=== PATIENT | female | born 1975 | race African-American/Black ===

== ENCOUNTER 2018-01-02 03:09 | Observation (INO) | payer BC, SELFPAY ==
[2018-01-02] MEDS ORDERED: ONDANSETRON 4 MG/2 ML VIAL ONE (03:30)
[2018-01-02] MEDS ORDERED: MORPHINE 4 MG/ML SYR ONE ×2 (03:30→08:10)
[2018-01-02 03:39] LABS: Absolute Lymphocytes (CBC) 2.3 K/uL (0.7-4.9); Absolute Monocytes 0.4 K/uL (0.1-1.3); Basophils % 0.9 % (0-1.3); Hematocrit 33.7 % (36.0-45.0); Lymphocytes % 32.7 % (15.3-44.8); MCH 28.8 pg (27.0-35.0); MCV 87.6 fL (80-100); MPV 9.2 fL (7.6-11.3); Monocytes % 6.2 % (3.3-12.3); RBC Red Blood Cell Count 3.84 M/uL (3.86-4.86)
[2018-01-02] MEDS ORDERED: NA CHLORIDE 0.9% 1,000 ML ONE (03:46)
[2018-01-02 03:55] LABS: Bicarbonate 26 mEq/L (21-31); Glucose Level 104 mg/dL (65-120); Lipase 17 U/L (22-51); Potassium 3.9 mEq/L (3.6-5.0); Sodium Level 136 mEq/L (135-145)
[2018-01-02 04:01] LABS: ALT/SGPT 15 IU/L (10-60); AST/SGOT 16 IU/L (10-42); Albumin 3.7 g/dL (3.2-5.5); Alkaline Phosphatase 73 IU/L (42-121); Amylase Level 76 U/L (28-100); BUN Blood Urea Nitrogen 17 mg/dL (6-20); Bilirubin Direct < 0.1 mg/dL (0-0.2); Bilirubin Total 0.2 mg/dL (0.3-1.2); Protein, Total 7.6 g/dL (6.0-8.3)
[2018-01-02 04:03] LABS: Urine Bacteria 20-50 /HPF (<20); Urine Culture Reflex Order NOT NEEDED; Urine RBC NONE SEEN /HPF (NONE SEEN)
[2018-01-02 04:09] LABS: Urine Blood NEGATIVE (NEG); Urine Glucose NEGATIVE (NEG); Urine Protein NEGATIVE (NEG)
[2018-01-02] MEDS ORDERED: MEPERIDINE HCL 50 MG/ML AMP ONE ×2 (04:44→14:14)
[2018-01-02] MEDS ORDERED: MORPHINE 4 MG/ML SYR IV PRN (06:35)
[2018-01-02] MEDS ORDERED: ACETAMINOPHEN 500 MG TAB PO PRN (06:35)
[2018-01-02] MEDS ORDERED: PROMETHAZINE 25 MG/ML VIAL ONE ×2 (08:09→14:40)
--- NOTE | 2018-01-02 09:13 | ER ---
Nurse's Notes [facility] Name: Anjana Stevenson Age: 42 yrs Sex: Female : 1975 Arrival Date: 01/02/2018 Time: 03:13 Bed 6 Private MD: Vinod Nolan Diagnosis: Recurrent abdominal pain. Cholelithiasis Presentation: 01/02 03:23 Presenting complaint: Patient states: she started having abdominal pain yesterday bb denies nausea, vomiting, diarrhea, states pain is constant she has been unable to sleep tonight, had episode of similar symptoms 5 months ago and was told she may have Crohn's and gallstones and should follow-up with GI. Transition of care: patient was not received from another setting of care. Onset of symptoms was January 01, 2018. Initial Sepsis Screen: Does the patient meet any 2 criteria? No. Patient's initial sepsis screen is negative. Does the patient have a suspected source of infection? No. Patient's initial sepsis screen is negative. Care prior to arrival: None. 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 - Social history:: Smoking status: Patient/guardian denies using tobacco, Patient/guardian denies using alcohol, street drugs. Screenin:43 Abuse screen: Denies threats or abuse. Denies injuries from another. Nutritional tl1 screening: No deficits noted. Tuberculosis screening: No symptoms or risk factors identified. Fall Risk IV access (20 points). Assessment: 03:42 General: Appears in no apparent distress. uncomfortable, Behavior is calm, cooperative, tl1 appropriate for age. Pain: Complains of pain in umbilical area Pain currently is 9 out of 10 on a pain scale. Quality of pain is described as crampy. Neuro: Level of Consciousness is awake, alert, obeys commands, Oriented to person, place, time, situation. Cardiovascular: Denies chest pain. Respiratory: Airway is patent Trachea midline Respiratory effort is even, unlabored, Breath sounds are clear bilaterally. GI: Abdomen is non-distended, Bowel sounds present X 4 quads. Abdomen is tender to palpation in umbilical area Reports lower abdominal pain, cramping. : No signs and/or symptoms were reported regarding the genitourinary system. EENT: No signs and/or symptoms were reported regarding the EENT system. Derm: No signs and/or symptoms reported regarding the dermatologic system. 07:18 Reassessment: US at bedside at this time. tw2 07:18 Reassessment: Patient appears in no apparent distress at this time. Patient and/or tw2 family updated on plan of care and expected duration. Pain level reassessed. Patient is alert, oriented x 3, equal unlabored respirations, skin warm/dry/pink. 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 tw2 Vital Signs: 03:26 BP 130 / 96; Pulse 94; Resp 18 S; Temp 98.4(O); Pulse Ox 99% on R/A; Weight 94.35 kg bb (R); Height 5 ft. 6 in. (167.64 cm) (R); Pain 10/10; 04:18 BP 123 / 67; Pulse 81; Resp 17; Pulse Ox 99% on R/A; tl1 05:50 BP 107 / 64; Pulse 72; Resp 18; Pulse Ox 99% on R/A; Pain 0/10; tl2 06:46 BP 113 / 72; Pulse 66; Resp 17; Pulse Ox 100% ; Pain 0/10; tl1 07:00 BP 108 / 61; Pulse 66; Resp 17; Pulse Ox 99% on R/A; tw2 08:03 BP 120 / 70; Pulse 64; Resp 17; Pulse Ox 99% ; tw2 03:26 Body Mass Index 33.57 (94.35 kg, 167.64 cm) bb ED Course: 03:13 Patient arrived in ED. es 03:13 Vinod Nolan MD is Private Physician. es 03:16 Stevo Simmons MD is Attending Physician. pkl 03:25 Triage completed. bb 03:26 Arm band placed on Patient placed in an exam room, on a stretcher, on pulse oximetry. bb 03:27 Anjana Seals, CHERELLE is Primary Nurse. tl1 03:34 No provider procedures requiring assistance completed. Inserted saline lock: 20 gauge tl1 in left antecubital area, using aseptic technique. Blood collected. 06:28 Barney Leigh MD is Hospitalizing Provider. pkl 07:10 Primary Nurse role handed off by Anjana Seals RN mw2 07:18 Chapis Zhou RN is Primary Nurse. tw2 07:18 Bed in low position. tw2 07:30 Ultrasound completed. Patient tolerated well. sg3 08:31 Patient admitted, IV remains in place. tw2 Administered Medications: 03:35 Drug: morphine 4 mg Route: IVP; Infused Over: 2 mins; Site: left antecubital; tl1 06:47 Follow up: Response: No adverse reaction; Marked relief of symptoms; Pain is decreased tl1 03:35 Drug: Zofran 4 mg Route: IVP; Infused Over: 2 mins; Site: left antecubital; tl1 06:48 Follow up: Response: No adverse reaction tl1 03:44 Drug: NS 0.9% 500 ml Route: IV; Rate: bolus; Site: left antecubital; tl1 04:22 Follow up: IV Status: Completed infusion tl1 04:22 Drug: NS 0.9% 1000 ml Route: IV; Rate: 100 ml/hr; Site: left antecubital; tl1 08:44 Follow up: IV Status: Infusion continued upon admission tw2 04:46 Drug: Demerol 50 mg Route: IVP; Infused Over: 2 mins; Site: left antecubital; tl1 06:47 Follow up: Response: No adverse reaction; Marked relief of symptoms; Pain is decreased tl1 08:10 Drug: Phenergan 12.5 mg Route: IVP; Site: left antecubital; tw2 08:44 Follow up: Response: No adverse reaction tw2 08:13 Drug: morphine 4 mg Route: IVP; Site: left antecubital; tw2 08:43 Follow up: Response: No adverse reaction tw2 Outcome: 06:30 Decision to Hospitalize by Provider. pkl 08:31 Admitted to Med/surg accompanied by tech, via wheelchair, room 217, with chart, Report tw2 called to CHERELLE Asher 08:31 Condition: stable 08:31 Instructed on the need for admit. 09:12 Patient left the ED. tw2 Signatures: Stevo Simmons MD MD pkl Carrol Blanco Brenda, RN RN bb Anjana Seals RN RN tl1 Chapis Zhou RN RN tw2 Susan Yang RN RN tl2 Starla Myles Pura Sun 2
--- NOTE | 2018-01-02 09:13 | EDPHYS ---
Physician Documentation [facility] Name: Anjana Stevenson Age: 42 yrs Sex: Female : 1975 Arrival Date: 01/02/2018 Time: 03:13 Bed 6 Private MD: Vinod Nolan ED Physician Stevo Simmons HPI: 01/02 03:41 This 42 yrs old Black Female presents to ER via Ambulatory with complaints of Abdominal pkl Pain. 03:41 The patient presents with abdominal pain in the upper abdomen. Onset: The pkl symptoms/episode began/occurred yesterday. The symptoms do not radiate. The patient has experienced a previous episode, approximately 5 months ago. 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 - Social history:: Smoking status: Patient/guardian denies using tobacco, Patient/guardian denies using alcohol, street drugs. ROS: 03:41 Eyes: Negative for injury, pain, redness, and discharge, ENT: Negative for injury, pkl pain, and discharge, Neck: Negative for injury, pain, and swelling, Cardiovascular: Negative for chest pain, palpitations, and edema. 03:41 Respiratory: Negative for cough, shortness of breath. 03:41 Abdomen/GI: Positive for abdominal pain, of the right upper quadrant and left upper quadrant. 03:41 Back: Negative for acute changes. 03:41 : Negative for urinary symptoms. 03:41 MS/extremity: Negative for acute changes. 03:41 Skin: Negative for rash. 03:41 Neuro: Negative for altered mental status. Exam: 03:41 Head/Face: Normocephalic, atraumatic. Eyes: Pupils equal round and reactive to light, pkl extra-ocular motions intact. Lids and lashes normal. Conjunctiva and sclera are non-icteric and not injected. Cornea within normal limits. Periorbital areas with no swelling, redness, or edema. ENT: Nares patent. No nasal discharge, no septal abnormalities noted. Tympanic membranes are normal and external auditory canals are clear. Oropharynx with no redness, swelling, or masses, exudates, or evidence of obstruction, uvula midline. Mucous membranes moist. Neck: Trachea midline, no thyromegaly or masses palpated, and no cervical lymphadenopathy. Supple, full range of motion without nuchal rigidity, or vertebral point tenderness. No Meningismus. Chest/axilla: Normal chest wall appearance and motion. Nontender with no deformity. No lesions are appreciated. Cardiovascular: Regular rate and rhythm with a normal S1 and S2. No gallops, murmurs, or rubs. Normal PMI, no JVD. No pulse deficits. Respiratory: Lungs have equal breath sounds bilaterally, clear to auscultation and percussion. No rales, rhonchi or wheezes noted. No increased work of breathing, no retractions or nasal flaring. 03:41 Abdomen/GI: Bowel sounds: normal, Palpation: soft, mild abdominal tenderness, in the right upper quadrant and left upper quadrant. 03:41 Back: Exam negative for acute changes. 03:41 : Exam negative for acute changes. 03:41 Musculoskeletal/extremity: Exam is negative for acute changes. 03:41 Skin: Exam negative for rash. 03:41 Neuro: Orientation: is normal, Mentation: is normal, Cranial nerves: grossly normal, Motor: is normal. Vital Signs: 03:26 BP 130 / 96; Pulse 94; Resp 18 S; Temp 98.4(O); Pulse Ox 99% on R/A; Weight 94.35 kg bb (R); Height 5 ft. 6 in. (167.64 cm) (R); Pain 10/10; 04:18 BP 123 / 67; Pulse 81; Resp 17; Pulse Ox 99% on R/A; tl1 05:50 BP 107 / 64; Pulse 72; Resp 18; Pulse Ox 99% on R/A; Pain 0/10; tl2 06:46 BP 113 / 72; Pulse 66; Resp 17; Pulse Ox 100% ; Pain 0/10; tl1 07:00 BP 108 / 61; Pulse 66; Resp 17; Pulse Ox 99% on R/A; tw2 08:03 BP 120 / 70; Pulse 64; Resp 17; Pulse Ox 99% ; tw2 03:26 Body Mass Index 33.57 (94.35 kg, 167.64 cm) MDM: 03:16 Patient medically screened. pkl 06:28 Data reviewed: vital signs, nurses notes, lab test result(s), radiologic studies. pkl 01/02 03:28 Order name: Amylase, Serum; Complete Time: 04:09 tl1 01/02 03:28 Order name: Basic Metabolic Panel; Complete Time: 04:09 tl1 01/02 03:28 Order name: CBC with Diff; Complete Time: 04:09 tl1 01/02 03:28 Order name: Hepatic Function; Complete Time: 04:09 tl1 01/02 03:28 Order name: Lipase; Complete Time: 04:09 tl1 01/02 03:28 Order name: Urine Microscopic Only; Complete Time: 04:09 tl1 01/02 03:48 Order name: Urine Dipstick--Ancillary (enter results); Complete Time: 04:11 mw2 01/02 03:48 Order name: Urine --Ancillary (enter results) 2 01/02 03:49 Order name: Urine --Ancillary; Complete Time: 04:11 EDMS 01/02 06:31 Order name: XRAY CXR (1 view) pkl 01/02 06:31 Order name: US Abdomen Limited pkl 01/02 03:28 Order name: IV Saline Lock; Complete Time: 03:32 tl1 01/02 03:28 Order name: Labs collected and sent; Complete Time: 03:32 tl1 01/02 03:28 Order name: Urine Dipstick-Ancillary (obtain specimen); Complete Time: 03:32 tl1 01/02 06:31 Order name: EKG; Complete Time: 06:32 pkl Administered Medications: 03:35 Drug: morphine 4 mg Route: IVP; Infused Over: 2 mins; Site: left antecubital; tl1 06:47 Follow up: Response: No adverse reaction; Marked relief of symptoms; Pain is decreased tl1 03:35 Drug: Zofran 4 mg Route: IVP; Infused Over: 2 mins; Site: left antecubital; tl1 06:48 Follow up: Response: No adverse reaction tl1 03:44 Drug: NS 0.9% 500 ml Route: IV; Rate: bolus; Site: left antecubital; tl1 04:22 Follow up: IV Status: Completed infusion tl1 04:22 Drug: NS 0.9% 1000 ml Route: IV; Rate: 100 ml/hr; Site: left antecubital; tl1 08:44 Follow up: IV Status: Infusion continued upon admission tw2 04:46 Drug: Demerol 50 mg Route: IVP; Infused Over: 2 mins; Site: left antecubital; tl1 06:47 Follow up: Response: No adverse reaction; Marked relief of symptoms; Pain is decreased tl1 08:10 Drug: Phenergan 12.5 mg Route: IVP; Site: left antecubital; tw2 08:44 Follow up: Response: No adverse reaction tw2 08:13 Drug: morphine 4 mg Route: IVP; Site: left antecubital; tw2 08:43 Follow up: Response: No adverse reaction tw2 Disposition: 01/02/18 06:30 Hospitalization ordered by Barney Leigh for Observation. Preliminary diagnosis is Recurrent abdominal pain. Cholelithiasis. - Bed requested for Telemetry/MedSurg (observation). - Status is Observation. tw2 - Condition is Stable. - Problem is new. - Symptoms have improved. UTI on Admission? No Signatures: Dispatcher [employer] EDME Stevo Simmons MD MD pkl Zulma Chew RN RN bb Anjana Seals RN RN tl1 Karen Garcia Tara, RN RN tw2 Corrections: (The following items were deleted from the chart) 03:38 03:28 Creatinine for Radiology+C.LAB.BRZ ordered. [facility] EDME 08:29 06:30 Hospitalization Ordered by Barney Leigh MD for Observation. Preliminary ag diagnosis is Recurrent abdominal pain. Cholelithiasis. Bed requested for Telemetry/MedSurg (observation). Status is Observation. Condition is Stable. Problem is new. Symptoms have improved. UTI on Admission? No. pkl 09:12 08:29 01/02/2018 06:30 Hospitalization Ordered by Barney Leigh MD for Observation. tw2 Preliminary diagnosis is Recurrent abdominal pain. Cholelithiasis. Bed requested for Telemetry/MedSurg (observation). Status is Observation. Condition is Stable. Problem is new. Symptoms have improved. UTI on Admission? No. ag
[2018-01-02 09:44] VITALS: BMI 33.5
[2018-01-02] MEDS: D5 0.45 NS 1,000 ML IV SCH ×3 (10:09→22:19)
[2018-01-02] MEDS ORDERED: GLYCOPYRROLATE 0.2 MG/ML SYR ONE ×2 (10:43)
[2018-01-02] MEDS ORDERED: MIDAZOLAM HCL 2 MG/2 ML INJ ONE (10:43)
[2018-01-02] MEDS ORDERED: PROPOFOL 200 MG/20 ML VIAL IV ONE (10:43)
[2018-01-02] MEDS ORDERED: FENTANYL CITR 100 MCG/2 ML ONE (10:43)
[2018-01-02] MEDS ORDERED: KETOROLAC 30 MG/ML INJ ONE (10:44)
[2018-01-02] MEDS ORDERED: MORPHINE 10 MG/ML VIAL ONE (10:44)
[2018-01-02] MEDS ORDERED: LIDOCAINE 2% MPF 5 ML VIAL ONE (10:44)
[2018-01-02] MEDS ORDERED: NEOSTIGMINE 1 MG/ML -5 ML SYRINGE ONE (10:44)
[2018-01-02] MEDS ORDERED: ROCURONIUM 50 MG/5 ML VIAL IV ONE (10:45)
[2018-01-02] MEDS ORDERED: METOCLOPRAMIDE 10 MG/2mL INJ ONE (10:47)
--- NOTE | 2018-01-02 10:56 | P.HP ---
Date of Service: 01/02/18 PC: This 42-year-old female presents emergency room with severe abdominal pain for diagnosis and treatment. HPC: Patient has been experiencing right upper quadrant abdominal pain of sudden onset since early yesterday morning. Describes it as severe. Located in the right upper quadrant radiating into her back. Has had similar episodes to this in the past the notion that she has gallstones. PMH: Colitis, treated with antibiotics PSHx: Tubal ligation, umbilical hernia repair with mesh SOC: Allergic to ibuprofen SYS REVIEW: No cough, wheeze, shortness of breath. No chest pain or palpitations. No urinary complaints O/E awake alert stable HEENT: Within normal limits Chest: Chest movement equal bilaterally ABD: Soft right upper quadrant tenderness, scars from previous umbilical hernia repair LOCO: Intact DATA: Within normal limits, documented gallstone IMPRESSION: Cholecystitis with cholelithiasis, biliary colic PLAN: I will take her to the operating room for laparoscopic possible open cholecystectomy with intraoperative cholangiogram. The risks of this procedure have been discussed. The possibility of bleeding, infection, difficulty entering the abdomen because of previous hernia repair were explained. Injury to bile ducts blood vessels and intestines were outlined and the need for an open and/or further surgeries and procedures was discussed. She understands and wants to proceed.
[2018-01-02] MEDS ORDERED: CEFOXITIN/SWI 1gm 1 GM/10 ML SYR ONE (11:14)
[2018-01-02] MEDS ORDERED: Ringers Lactate 1,000 ML IV ONE ×2 (11:23→12:31)
--- NOTE | 2018-01-02 12:15 | RAD REPORT ---
EXAM DESCRIPTION: Juan M Single View01/02/2018 6:46 am CLINICAL HISTORY: Abdominal pain COMPARISON: none FINDINGS: The lungs appear clear of acute infiltrate. The heart is normal size IMPRESSION: No acute abnormalities displayed
--- NOTE | 2018-01-02 12:18 | RAD REPORT ---
EXAM DESCRIPTION: US - Abdomen Exam Limited - 01/02/2018 7:35 am CLINICAL HISTORY: Abdominal pain. COMPARISON: May 2017 FINDINGS: The gallbladder is contracted containing multiple stones. Due to the contraction is diffic ult to determine if the wall is thickened. The biliary tree is mildly dilated IMPRESSION: Cholelithiasis. Dilatation of the common bile duct probably secondary to a nonvisualized stone within the duct
--- NOTE | 2018-01-02 13:33 | P.OP ---
Preoperative diagnosis: Cholecystitis with cholelithiasis, biliary colic Postoperative diagnosis: The same Primary procedure: Laparoscopic cholecystectomy Secondary procedure: Cholangiogram Anesthesia: General Estimated blood loss: Less than 20 cc Specimen: 1 gallbladder in content Operative Technique: The patient brought the operating room and placed supine on the table. After the induction of adequate general endotracheal anesthesia, the area of the abdomen was prepped with a DuraPrep solution, and she was draped in usual aseptic manner. Attention was turned towards the umbilicus. This patient has had a previous apparent umbilical hernia repair. A subumbilical incision was made. Using the the support were able come down through the layers to try and into the peritoneal cavity. We encounter with some omental fat but could did not have a clear and straight for did you a hence the approach to this method was abandoned. Attention was turned towards towards the left upper quadrant. Once again, a skin incision was made this brought down through the skin and subcutaneous tissue. We encounter the muscles of the anterior abdominal wall. We carefully dissected down through these using the the seaport we were able into the peritoneal cavity but once again encounter adhesions were not able to manipulate through that area hence the the support was withdrawn. Attention was now turned towards the upper midline. Once again, a skin incision was made this brought down through the skin and subcutaneous tissue. The able to successfully entry into the peritoneal cavity. Inspection of the abdominal cavity showed that she has a numerous some amount of adhesions around the umbilicus. There is a small bowel that is attached by its and 10 mesenteric portray the anterior abdominal wall just below the umbilicus. Just lateral to this we were able place a 5 mm trocar on the right side to allow us to place a 10 mm camera. With the patient now placed in reverse Trendelenburg and rolled to the left were able to visualize right upper quadrant. We could see a distended in chronically inflamed gallbladder. A grasper was placed on the fundus another down by Jf's pouch. Applying lateral traction we were finally able to dissect down and expose cystic duct and artery. A clip was placed between the cystic duct and the gallbladder itself. An opening was made into the cystic duct through which we obtained a normal intraoperative cholangiogram. The cholangiogram was now removed. Clips were placed on the distal portion of the cystic duct. The cystic artery having been identified was clipped and divided. The gallbladder was now dissected free from the liver bed and placed into the Endo-Catch at this point it was not necessary to remove the specimen from the abdominal cavity. We came out through the 10 mm trocar site that had been placed in the upper midline after having dilated the area using the nasal speculum. It was necessary to widen the skin margins to allow the egression of this specimen from the peritoneal cavity. At this point the abdomen is inspected to ensure adequate hemostasis. The right upper quadrant was irrigated with a saline solution. The fluid was aspirated from the peritoneal cavity. The midline incision was now closed using the Endo Close an absorbable suture. Tubal absorbable stitches were placed in this area to approximate the factual defect. At this point the patient was returned back to the neutral position on the OR table. The trocars were removed. Tashi now applied to the skin. At the end of the procedure she was stable when sent to the recovery room. Needle sponge instrument count were correct. No drains were placed.
[2018-01-02] MEDS ORDERED: ONDANSETRON 4 MG/2 ML VIAL IV PRN (13:48)
[2018-01-02] MEDS ORDERED: Morphine 2 MG/2 ML SYR IV PRN (13:48)
[2018-01-02] MEDS: MEPERIDINE HCL 50 MG/ML AMP ONE ×5 (13:50→14:42)
--- NOTE | 2018-01-02 14:44 | RAD REPORT ---
EXAM DESCRIPTION: RADCholangiogram Oper-Xray Or01/02/2018 1:51 pm CLINICAL HISTORY: Abdominal pain FINDINGS: The examination was performed by Dr. Leigh. The cystic duct was cannulated and contrast administered. A single fluoroscopic spot image is submitted. The common bile duct is cannulated. Filling defect wit hin the duct likely represents stones. Please refer to the referring surgeons report for additional f indings.
[2018-01-02] MEDS: Morphine 2 MG/2 ML SYR IV PRN ×2 (15:34→19:48)
[2018-01-02] MEDS: PROMETHAZINE 25 MG/ML VIAL IV PRN (19:49)
[2018-01-02 22:24] VITALS: O2SAT 95
[2018-01-03] MEDS: Morphine 2 MG/2 ML SYR IV PRN ×2 (01:20→06:25)
[2018-01-03] MEDS: PROMETHAZINE 25 MG/ML VIAL IV PRN ×2 (01:20→15:03)
[2018-01-03] MEDS: D5 0.45 NS 1,000 ML IV SCH ×2 (06:18→15:00)
[2018-01-03] MEDS ORDERED: MORPHINE 4 MG/ML SYR IV PRN (08:49)
--- NOTE | 2018-01-03 15:35 | P.PN ---
Date of Service: 01/03/18 S: Patient feels better today, still has some residual soreness. Otherwise has been up ambulating, tolerating liquids, pain appears to be controlled. O.: Incisions are clean, discuss findings at yesterday surgery. Center photographs of her gallstones. Answered questions about diet eccentric. Surgically stable P: Discharge home, see me next week in my office.
[2018-01-03 18:06] VITALS: BP 123/67; TEMP 97.3
== END 2018-01-03 16:45 | disposition home or self-care (01) ==
LOC: ER 03:09 → ERHOLD 06:38 → 2ND 08:46
PROVIDERS: ADMIT Surgery; ATTEND Surgery
PROC: BF00YZZ Plain Radiography of Bile Ducts using Other Contrast (ICD-10-PCS; 2018-01-02)
PROC: 0FT44ZZ Resection of Gallbladder, Percutaneous Endoscopic Approach (ICD-10-PCS; principal; 2018-01-02 11:00)
DX: K80.10 Calculus of gallbladder with chronic cholecystitis without obstruction (principal)
CPT/HCPCS: 36415; 71045; 74300; 76705; 80048; 80076; 81003; 81015; 81025; 82150; 83690; 85025; 88304; 88305; 96361; 96374; 96375; 99285; G0378; J2175; J2250; J2270; J2405; J2550; J2710; J2765; J3010; J7030; Q9967

== ENCOUNTER 2018-01-12 13:55 | Emergency (ER) | payer BC ==
[2018-01-12] MEDS ORDERED: NA CHLORIDE 0.9% 1,000 ML ONE (14:40)
[2018-01-12] MEDS ORDERED: FENTANYL CITR 100 MCG/2 ML ONE ×2 (14:40→16:23)
[2018-01-12 15:00] LABS: Absolute Monocytes 0.2 K/uL (0.1-1.3); Absolute Neutrophil 2.7 K/uL (1.8-8.0); Basophils % 0.5 % (0-1.3); Hematocrit 34.3 % (36.0-45.0); Lymphocytes % 24.7 % (15.3-44.8); MCH 28.7 pg (27.0-35.0); MCV 87.6 fL (80-100); MPV 9.1 fL (7.6-11.3); Monocytes % 5.9 % (3.3-12.3); RBC Red Blood Cell Count 3.92 M/uL (3.86-4.86)
[2018-01-12 15:12] LABS: Bicarbonate 23 mEq/L (21-31); Glucose Level 112 mg/dL (65-120); Lipase 19 U/L (22-51); Potassium 3.9 mEq/L (3.6-5.0); Sodium Level 136 mEq/L (135-145)
[2018-01-12 15:17] LABS: Urine Blood NEGATIVE (NEG); Urine Glucose NEGATIVE (NEG); Urine Protein TRACE (NEG); Urine Specific Gravity 1.025 (1.005-1.030); Urine pH 5.5 (5.0-7.0)
[2018-01-12 15:18] LABS: ALT/SGPT 23 IU/L (10-60); AST/SGOT 20 IU/L (10-42); Albumin 3.8 g/dL (3.2-5.5); Alkaline Phosphatase 74 IU/L (42-121); BUN Blood Urea Nitrogen 10 mg/dL (6-20); Bilirubin Direct < 0.1 mg/dL (0-0.2); Bilirubin Total 0.4 mg/dL (0.3-1.2); Protein, Total 7.8 g/dL (6.0-8.3)
[2018-01-12 15:41] LABS: Urine Bacteria NONE SEEN /HPF (<20); Urine RBC NONE SEEN /HPF (NONE SEEN)
[2018-01-12 15:42] LABS: Urine Culture Reflex Order NOT NEEDED
--- NOTE | 2018-01-12 15:58 | RAD REPORT ---
EXAM DESCRIPTION: VAS - Extremity Venous Uni Ltd - 01/12/2018 3:43 pm CLINICAL HISTORY: Leg pain and swelling COMPARISON: None. TECHNIQUE: Real-time sonographic evaluation of the left lower extremity deep venous system was perfo rmed. FINDINGS: Normal compressibility, flow augmentation, phasic flow and spontaneous flow are identified in the left lower extremity deep venous system. No intraluminal filling defects seen. IMPRESSION: No DVT in the left lower extremity.
[2018-01-12] MEDS ORDERED: ONDANSETRON 4 MG (ODT) TAB ONE (16:18)
--- NOTE | 2018-01-12 16:45 | RAD REPORT ---
EXAM DESCRIPTION: CT - Stone Protocol - 01/12/2018 4:30 pm CLINICAL HISTORY: Abdominal pain, nausea and vomiting, cholecystectomy 1 week earlier, prior hernia repair COMPARISON: CT study May 2017, ultrasound January 02, 2018 TECHNIQUE: CT imaging of the abdomen was performed without oral or IV contrast. All CT scans are performed using dose optimization technique as appropriate and may include automated exposure control or mA/KV adjustment according to patient size. FINDINGS: No suspicious findings in the lung bases. The liver, spleen, and pancreas show no suspicious findings for a non IV contrast study. Cholecystec rajesh clips are present. Biliary tree within normal limits. Trace amount of stranding in the gallbladd er fossa is well within normal limits for 1 week cholecystectomy. Air and stranding in the subcutaneo us fat of the abdomen also within normal limits for recent surgery. No abdominal wall hematoma or mas s. No abscess in the abdominal wall or subcutaneous fatty tissues. No biloma or evidence for bile le ak. No hydronephrosis or suspicious mass in either kidney. Isodense masses and pyelonephritis are not exc luded. No urinary bladder abnormality. Uterus and ovaries show no new or suspicious findings. No dilated bowel loops or bowel wall thickening. No abnormal free air or pneumatosis. A few small mes enteric lymph nodes are seen. Appendix is normal. No mass or bulky lymphadenopathy. No suspicious bony findings. Overall exam sensitivity is decreased when no contrast is administered. IMPRESSION: Postsurgical changes in the anterior abdominal wall, anterior sub cutaneous fat and gall bladder fossa are well within normal limits for recent surgery. No abscess or suspicious finding note d. No acute GI or process seen on noncontrast imaging. A few small mesenteric lymph nodes are present .
--- NOTE | 2018-01-12 17:21 | EDPHYS ---
Physician Documentation [facility] Name: Anjana Stevenson Age: 42 yrs Sex: Female : 1975 Arrival Date: 01/12/2018 Time: 13:58 Bed 7 Private MD: None, None ED Physician Pierce De Leon HPI: 01/12 16:26 This 42 yrs old Black Female presents to ER via Ambulatory with complaints of Nausea, snw Diarrhea, Leg Pain. 16:26 The patient presents to the emergency department with nausea, vomiting, diarrhea, snw abdominal pain. Onset: The symptoms/episode began/occurred gradually, 1 week(s) ago, and became persistent worse last pm. Possible causes: recent cholecystectomy. Associated signs and symptoms: Pertinent positives: left lower ext feels tight, edematous. Severity of symptoms: At their worst the symptoms were moderate. The patient has been recently seen by a physician: a general surgeon. WASTE HAND: 14:08 LMP 12/06/2017 aa5 Historical: - Allergies: 14:08 Ibuprofen (Vomiting); aa5 - PMHx: 14:08 None; aa5 - PSHx: 14:08 Hernia repair; lumpectomy from back; Cholecystectomy; aa5 - Immunization history:: Adult Immunizations up to date. - Social history:: Smoking status: Patient/guardian denies using tobacco. - Ebola Screening: : No symptoms or risks identified at this time. ROS: 16:25 Eyes: Negative for injury, pain, redness, and discharge, ENT: Negative for injury, snw pain, and discharge, Neck: Negative for injury, pain, and swelling, Cardiovascular: Negative for chest pain, palpitations, and edema, Respiratory: Negative for shortness of breath, cough, wheezing, and pleuritic chest pain. 16:25 Back: Negative for injury and pain, : Negative for injury, bleeding, discharge, and swelling, MS/Extremity: Negative for injury and deformity, Skin: Negative for injury, rash, and discoloration, Neuro: Negative for headache, weakness, numbness, tingling, and seizure. 16:25 Constitutional: Positive for body aches, malaise, poor PO intake. 16:25 Abdomen/GI: Positive for abdominal pain, nausea, vomiting, and diarrhea. Exam: 16:22 Head/Face: Normocephalic, atraumatic. Eyes: Pupils equal round and reactive to light, snw extra-ocular motions intact. Lids and lashes normal. Conjunctiva and sclera are non-icteric and not injected. Cornea within normal limits. Periorbital areas with no swelling, redness, or edema. ENT: Nares patent. No nasal discharge, no septal abnormalities noted. Tympanic membranes are normal and external auditory canals are clear. Oropharynx with no redness, swelling, or masses, exudates, or evidence of obstruction, uvula midline. Mucous membranes moist. Neck: Trachea midline, no thyromegaly or masses palpated, and no cervical lymphadenopathy. Supple, full range of motion without nuchal rigidity, or vertebral point tenderness. No Meningismus. Chest/axilla: Normal chest wall appearance and motion. Nontender with no deformity. No lesions are appreciated. Cardiovascular: Regular rate and rhythm with a normal S1 and S2. No gallops, murmurs, or rubs. Normal PMI, no JVD. No pulse deficits. Respiratory: Lungs have equal breath sounds bilaterally, clear to auscultation and percussion. No rales, rhonchi or wheezes noted. No increased work of breathing, no retractions or nasal flaring. Back: No spinal tenderness. No costovertebral tenderness. Full range of motion. Skin: Warm, dry with normal turgor. Normal color with no rashes, no lesions, and no evidence of cellulitis. MS/ Extremity: Pulses equal, no cyanosis. Neurovascular intact. Full, normal range of motion. Neuro: Awake and alert, GCS 15, oriented to person, place, time, and situation. Cranial nerves II-XII grossly intact. Motor strength 5/5 in all extremities. Sensory grossly intact. Cerebellar exam normal. Normal gait. 16:22 Constitutional: The patient appears alert, awake, obese, uncomfortable. 16:22 Abdomen/GI: Inspection: obese stapled wounds to left upper quad, right and left of umbilicus and mid right abdomen, no discharge, no erythema. Vital Signs: 14:08 BP 127 / 82; Pulse 92; Resp 16 S; Temp 98.7(TE); Pulse Ox 100% on R/A; Weight 94.35 kg aa5 (R); Height 5 ft. 6 in. (167.64 cm) (R); Pain 9/10; 16:15 BP 120 / 88; Pulse 73; Resp 16; Pulse Ox 99% ; Pain 9/10; jl7 14:08 Body Mass Index 33.57 (94.35 kg, 167.64 cm) aa5 MDM: 14:39 Patient medically screened. snw 17:21 Data reviewed: vital signs, nurses notes. Data interpreted: Pulse oximetry: on room air snw is 100 %. Interpretation: normal. Counseling: I had a detailed discussion with the patient and/or guardian regarding: the historical points, exam findings, and any diagnostic results supporting the discharge/admit diagnosis, the presence of at least one elevated blood pressure reading (>120/80) during this emergency department visit, lab results, radiology results, the need for outpatient follow up. 01/12 14:26 Order name: Basic Metabolic Panel; Complete Time: 15:31 snw 01/12 14:26 Order name: CBC with Diff; Complete Time: 15:12 snw 01/12 14:26 Order name: Creatinine for Radiology; Complete Time: 15:31 snw 01/12 14:26 Order name: Hepatic Function; Complete Time: 15:31 snw 01/12 14:26 Order name: Lipase; Complete Time: 15:31 snw 01/12 14:26 Order name: Urine Microscopic Only; Complete Time: 16:02 snw 01/12 15:13 Order name: Extremity Venous Uni Ltd US; Complete Time: 16:02 snw 01/12 15:15 Order name: Urine Dipstick--Ancillary (enter results); Complete Time: 15:31 ag 01/12 15:15 Order name: Urine --Ancillary (enter results); Complete Time: 15:31 ag 01/12 16:03 Order name: CT Stone Protocol; Complete Time: 17:17 snw 01/12 14:26 Order name: IV Saline Lock; Complete Time: 14:49 snw 01/12 14:26 Order name: Labs collected and sent; Complete Time: 14:49 snw 01/12 14:26 Order name: Urine Dipstick-Ancillary (obtain specimen); Complete Time: 14:49 snw Administered Medications: 14:48 Drug: NS 0.9% 1000 ml Route: IV; Rate: 125 ml/hr; Site: right antecubital; jl7 14:49 Drug: fentaNYL (PF) 50 mcg Route: IVP; Site: right antecubital; jl7 15:05 Follow up: Response: No adverse reaction; Pain is decreased jl7 16:18 Drug: Zofran 4 mg Route: PO; jl7 16:26 Drug: fentaNYL (PF) 100 mcg Route: IM; Site: right gluteus; jl7 17:37 Follow up: Response: No adverse reaction jl7 16:29 CANCELLED (Duplicate Order): fentaNYL (PF) 100 mcg IM once snw Disposition: 01/13 08:27 Co-signature as Attending Physician, Pierce De Leon MD I agree with the assessment and kdr plan of care. Disposition: 01/12/18 17:20 Discharged to Home. Impression: Post operative pain, Vomiting, unspecified, Diarrhea, unspecified. - Condition is Stable. - Discharge Instructions: Food Choices to Help Relieve Diarrhea, Adult, Diarrhea, Nausea and Vomiting, Soft-Food Meal Plan, Rehydration, Adult. - Prescriptions for Zofran 4 mg Oral Tablet - take 1 tablet by ORAL route every 12 hours As needed; 20 tablet. - Work release form, Medication Reconciliation Form, Thank You Letter, Antibiotic Education, Prescription Opioid Use form. - Follow up: Private Physician; When: 1 - 2 days; Reason: Recheck today's complaints, Continuance of care, Re-evaluation by your physician. Follow up: Emergency Department; When: As needed; Reason: Worsening of condition. Signatures: Dispatcher [employer] EDTX Pierce De Leon MD MD kdr Therrien, Shelly, TEST DRILLER-C TEST DRILLER-Csnw Yamilet Mcclure RN RN aa5 Valentine Franklin RN RN jl7 Corrections: (The following items were deleted from the chart) 01/12 16:29 16:29 fentaNYL (PF) 100 mcg IM once ordered. snw snw 17:38 17:20 01/12/2018 17:20 Discharged to Home. Impression: Post operative pain; Vomiting, jl7 unspecified; Diarrhea, unspecified. Condition is Stable. Forms are Medication Reconciliation Form, Thank You Letter, Antibiotic Education, Prescription Opioid Use. Follow up: Private Physician; When: 1 - 2 days; Reason: Recheck today's complaints, Continuance of care, Re-evaluation by your physician. Follow up: Emergency Department; When: As needed; Reason: Worsening of condition. snw
--- NOTE | 2018-01-12 17:21 | ER ---
Nurse's Notes [facility] Name: Anjana Stevenson Age: 42 yrs Sex: Female : 1975 Arrival Date: 01/12/2018 Time: 13:58 Bed 7 Private MD: None, None Diagnosis: Post operative pain;Vomiting, unspecified;Diarrhea, unspecified Presentation: 01/12 14:07 Presenting complaint: Patient states: nausea, vomiting, and diarrhea x 3 days ago. Pt aa5 reports having cholecystectomy 1 week ago. Pt states "My legs feel tight as well". Transition of care: patient was not received from another setting of care. Onset of symptoms was December 2017. Risk Assessment: Do you want to hurt yourself or someone else? Patient reports no desire to harm self or others. Initial Sepsis Screen: Does the patient meet any 2 criteria? No. Patient's initial sepsis screen is negative. Does the patient have a suspected source of infection? No. Patient's initial sepsis screen is negative. Care prior to arrival: None. 14:07 Method Of Arrival: Ambulatory aa5 14:07 Acuity: TAWANDA 3 aa5 NURSE SPECIAL: 14:08 LMP 12/06/2017 aa5 Historical: - Allergies: 14:08 Ibuprofen (Vomiting); aa5 - PMHx: 14:08 None; aa5 - PSHx: 14:08 Hernia repair; lumpectomy from back; Cholecystectomy; aa5 - Immunization history:: Adult Immunizations up to date. - Social history:: Smoking status: Patient/guardian denies using tobacco. - Ebola Screening: : No symptoms or risks identified at this time. Screenin:30 Abuse screen: Denies threats or abuse. Denies injuries from another. Nutritional jl7 screening: No deficits noted. Tuberculosis screening: No symptoms or risk factors identified. Fall Risk IV access (20 points). Total Vasquez Fall Scale indicates No Risk (0-24 pts). Assessment: 14:30 General: Appears in no apparent distress. uncomfortable, Behavior is calm, cooperative, jl7 appropriate for age. Pain: Complains of pain in right lower quadrant, left lower quadrant and left calf Pain currently is 9 out of 10 on a pain scale. Quality of pain is described as crampy, pressure, Pain began 1 day ago. Is continuous. Neuro: Level of Consciousness is awake, alert, obeys commands, Oriented to person, place, time, situation. Cardiovascular: Patient's skin is warm and dry. Respiratory: Airway is patent Respiratory effort is even, unlabored, Respiratory pattern is regular, symmetrical. GI: Abdomen is round non-distended, Last BM was January 12, 2018. Reports diarrhea, nausea, vomiting, since 3 days. : No signs and/or symptoms were reported regarding the genitourinary system. EENT: No signs and/or symptoms were reported regarding the EENT system. Derm: Skin is dry, Skin is normal, Skin temperature is warm. Musculoskeletal: Range of motion: intact in all extremities. 15:30 Reassessment: Patient and/or family updated on plan of care and expected duration. Pain jl7 level reassessed. Patient is alert, oriented x 3, equal unlabored respirations, skin warm/dry/pink. 16:15 Reassessment: Pt c/o increased pain, rated 9/10, provider notified, see MAR for orders. jl7 Vital Signs: 14:08 BP 127 / 82; Pulse 92; Resp 16 S; Temp 98.7(TE); Pulse Ox 100% on R/A; Weight 94.35 kg aa5 (R); Height 5 ft. 6 in. (167.64 cm) (R); Pain 9/10; 16:15 BP 120 / 88; Pulse 73; Resp 16; Pulse Ox 99% ; Pain 9/10; jl7 14:08 Body Mass Index 33.57 (94.35 kg, 167.64 cm) aa5 ED Course: 13:58 Patient arrived in ED. mr 13:58 None, None is Private Physician. mr 14:08 Triage completed. aa5 14:08 Arm band placed on. aa5 14:15 Ita Langley FNP-C is PHCP. snw 14:15 Pierce De Leon MD is Attending Physician. snw 14:27 Valentine Franklin RN is Primary Nurse. jl7 14:30 Patient has correct armband on for positive identification. Bed in low position. Call jl7 light in reach. Side rails up X 1. Pulse ox on. NIBP on. Warm blanket given. 14:30 Inserted saline lock: 20 gauge in right antecubital area, using aseptic technique. jl7 Blood collected. 14:49 Initial lab(s) drawn, by ED staff, sent to lab. Urine collected: clean catch specimen, 3 corky colored. 15:35 Ultrasound completed. Patient tolerated well. Notified MILK DELIVERY DRIVER/PA prelim given to ita. cy 15:43 Extremity Venous Uni Ltd US In Process Unspecified. EDMS 16:30 CT completed. Patient tolerated procedure well. Patient moved to CT via wheelchair. sw Patient moved back from CT. 16:30 CT Stone Protocol In Process Unspecified. EDMS 17:37 No provider procedures requiring assistance completed. IV discontinued, intact, jl7 bleeding controlled, No redness/swelling at site. Pressure dressing applied. Administered Medications: 14:48 Drug: NS 0.9% 1000 ml Route: IV; Rate: 125 ml/hr; Site: right antecubital; jl7 14:49 Drug: fentaNYL (PF) 50 mcg Route: IVP; Site: right antecubital; jl7 15:05 Follow up: Response: No adverse reaction; Pain is decreased jl7 16:18 Drug: Zofran 4 mg Route: PO; jl7 16:26 Drug: fentaNYL (PF) 100 mcg Route: IM; Site: right gluteus; jl7 17:37 Follow up: Response: No adverse reaction jl7 16:29 CANCELLED (Duplicate Order): fentaNYL (PF) 100 mcg IM once snw Outcome: 17:20 Discharge ordered by . snw 17:37 Discharged to home ambulatory. jl7 17:37 Condition: stable 17:37 Discharge instructions given to patient, Instructed on discharge instructions, follow up and referral plans. medication usage, Demonstrated understanding of instructions, follow-up care, medications, Prescriptions given X 1. 17:38 Patient left the ED. jl7 Signatures: Dispatcher [employer] EDMS Ita Langley, LISANDRO RESPIRATORY MEDICINE PHYSICIAN-Carmen JonesderonYamilet, RN RN Zuleyma Smalls Jahala, RN RN jl7 Patito Walters 3 Kaden Garcia
[2018-01-12 17:51] VITALS: TEMP 98.7
[2018-01-12 17:53] VITALS: BP 120/88; O2SAT 99
== END 2018-01-12 17:38 | disposition home or self-care (01) ==
LOC: ER 13:55
DX: G89.18 Other acute postprocedural pain (principal); R19.7 Diarrhea, unspecified; Z88.6 Allergy status to analgesic agent
CPT/HCPCS: 36415; 74176; 76377; 80048; 80076; 81003; 81015; 81025; 83690; 85025; 93971; 96372; 96374; 99284; J3010; J7030

== ENCOUNTER 2018-03-18 17:58 | Emergency (ER) | payer BC ==
[2018-03-18 19:26] LABS: Absolute Lymphocytes (CBC) 1.6 K/uL (0.7-4.9); Absolute Monocytes 0.3 K/uL (0.1-1.3); Absolute Neutrophil 3.8 K/uL (1.8-8.0); Basophils % 0.6 % (0-1.3); Hematocrit 32.1 % (36.0-45.0); Lymphocytes % 27.1 % (15.3-44.8); MCH 29.4 pg (27.0-35.0); MPV 9.2 fL (7.6-11.3); Monocytes % 4.8 % (3.3-12.3); RBC Red Blood Cell Count 3.69 M/uL (3.86-4.86)
[2018-03-18 19:30] LABS: Protime INR 1.08
[2018-03-18 19:30] LABS: Barbiturates NEGATIVE (NEGATIVE); Benzodiazepines NEGATIVE (NEGATIVE); Cocaine NEGATIVE (NEGATIVE); METHAMPHETAM NEGATIVE (NEGATIVE); Methadone NEGATIVE (NEGATIVE); Opiates NEGATIVE (NEGATIVE); Phencyclidine NEGATIVE (NEGATIVE); THC Cannibis NEGATIVE (NEGATIVE)
[2018-03-18 19:37] LABS: ALT/SGPT 17 U/L (12-78); AST/SGOT 10 U/L (15-37); Albumin 3.3 g/dL (3.4-5.0); Alkaline Phosphatase 69 U/L (45-117); BUN Blood Urea Nitrogen 11 mg/dL (7-18); Bicarbonate 30 mmol/L (21-32); Bilirubin Direct < 0.1 mg/dL (0-0.2); Bilirubin Total 0.3 mg/dL (0.2-1.0); Glucose Level 110 mg/dL (74-106); Potassium 3.3 mmol/L (3.5-5.1); Protein, Total 7.5 g/dL (6.4-8.2); Sodium Level 142 mmol/L (136-145)
[2018-03-18 19:38] LABS: Alcohol Serum/Plasma 4 mg/dL (<3)
[2018-03-18 19:39] LABS: Urine Blood NEGATIVE (NEG); Urine Glucose NEGATIVE (NEG); Urine Protein NEGATIVE (NEG); Urine Specific Gravity 1.025 (1.005-1.030); Urine pH 6.5 (5.0-7.0)
[2018-03-18] MEDS ORDERED: ACETAMINOPHEN 500 MG TAB ONE (20:10)
[2018-03-18] MEDS ORDERED: POTASSIUM 25 MEQ EFFERV TAB ONE (20:10)
--- NOTE | 2018-03-18 20:58 | EDPHYS ---
Physician Documentation [facility] Name: Anjana Stevenson Age: 42 yrs Sex: Female : 1975 Arrival Date: 03/18/2018 Time: 18:01 Bed 28 Private MD: Vinod Nolan ED Physician Pierce De Leon HPI: 03/18 19:00 This 42 yrs old Black Female presents to ER via Ambulatory with complaints of trouble pm1 sleeping. 19:00 The patient presents to the emergency department with depression, over a , the pm1 patient's child, insomnia. Onset: The symptoms/episode began/occurred this morning. Past psychiatric history: Prior diagnosis: no previous psychiatric diagnosis known, Psychiatric medications include: none, Primary psychiatric physician: the patient does not have a primary psychiatric physician, the patient has not had a prior suicide gesture, the patient does not have a previous inpatient psychiatric history. Associated signs and symptoms: Pertinent positives; depression, headache, Pertinent negatives: hallucinations, homicidal ideation, substance abuse, suicide ideation. The patient has not experienced similar symptoms in the past. The patient has been recently seen by a physician: the patient's primary care provider, Dr. Nolan. Patient presenting today with complains of insomnia and suicidal ideation. Patient's special needs daughter a little over 1 year ago from an unwitnessed seizure in the middle of the night. Patient has felt depression and suffering from insomnia. Saw her PCP and was initially prescribed Belsomra. Took it for 4 days, but ineffective for sleep and gave her racing thoughts. Contacted PCP and then prescribed Ambien. Patient took one dose of Ambien and then started having thoughts of "not wanting to be here" and "overwhelmed." Patient does not want to . Patient feels that she does not have anyone to talk to and feels alone regarding the of her child. Her is dealing with the grief in his own way. MEDIA JOB TITLES: 18:33 LMP 03/01/2018 iw Historical: - Allergies: 18:32 Ibuprofen (Vomiting); iw - PMHx: 18:35 None; iw - PSHx: 18:34 Hernia repair; lumpectomy from back; Cholecystectomy; iw - Immunization history:: Adult Immunizations. - Ebola Screening: : Patient negative for fever greater than or equal to 101.5 degrees Fahrenheit, and additional compatible Ebola Virus Disease symptoms Patient denies exposure to infectious person Patient denies travel to an Ebola-affected area in the 21 days before illness onset No symptoms or risks identified at this time. - Social history:: Smoking status: unknown. ROS: 19:00 Constitutional: Negative for fever, chills, and weight loss, Eyes: Negative for injury, pm1 pain, redness, and discharge, ENT: Negative for injury, pain, and discharge, Neck: Negative for injury, pain, and swelling, Cardiovascular: Negative for chest pain, palpitations, and edema, Respiratory: Negative for shortness of breath, cough, wheezing, and pleuritic chest pain, Abdomen/GI: Negative for abdominal pain, nausea, vomiting, diarrhea, and constipation, Back: Negative for injury and pain, : Negative for injury, bleeding, discharge, and swelling, MS/Extremity: Negative for injury and deformity, Skin: Negative for injury, rash, and discoloration, Neuro: Negative for headache, weakness, numbness, tingling, and seizure. 19:00 Psych: Positive for insomnia. Exam: 19:00 Constitutional: This is a well developed, well nourished patient who is awake, alert, pm1 and in no acute distress. Head/Face: Normocephalic, atraumatic. Eyes: Pupils equal round and reactive to light, extra-ocular motions intact. Lids and lashes normal. Conjunctiva and sclera are non-icteric and not injected. Cornea within normal limits. Periorbital areas with no swelling, redness, or edema. ENT: Nares patent. No nasal discharge, no septal abnormalities noted. Tympanic membranes are normal and external auditory canals are clear. Oropharynx with no redness, swelling, or masses, exudates, or evidence of obstruction, uvula midline. Mucous membranes moist. Neck: Trachea midline, no thyromegaly or masses palpated, and no cervical lymphadenopathy. Supple, full range of motion without nuchal rigidity, or vertebral point tenderness. No Meningismus. Chest/axilla: Normal chest wall appearance and motion. Nontender with no deformity. No lesions are appreciated. Cardiovascular: Regular rate and rhythm with a normal S1 and S2. No gallops, murmurs, or rubs. Normal PMI, no JVD. No pulse deficits. Respiratory: Lungs have equal breath sounds bilaterally, clear to auscultation and percussion. No rales, rhonchi or wheezes noted. No increased work of breathing, no retractions or nasal flaring. Abdomen/GI: Soft, non-tender, with normal bowel sounds. No distension or tympany. No guarding or rebound. No evidence of tenderness throughout. Back: No spinal tenderness. No costovertebral tenderness. Full range of motion. Skin: Warm, dry with normal turgor. Normal color with no rashes, no lesions, and no evidence of cellulitis. MS/ Extremity: Pulses equal, no cyanosis. Neurovascular intact. Full, normal range of motion. 19:00 Neuro: Orientation: is normal, Motor: is normal, moves all fours, Sensation: is normal, no obvious gross deficits, Gait: is steady, at a normal pace, without difficulty. 19:00 Psych: Behavior/mood is cooperative, depressed, Patient has no thoughts/intents to harm self or others. Delusions/hallucinations are not present. Vital Signs: 18:33 BP 138 / 111; Pulse 74; Resp 16; Temp 98.4(O); Pulse Ox 100% ; Weight 103.42 kg; Height iw 5 ft. 6 in. (167.64 cm); Pain 10/10; 19:59 BP 135 / 84; Pulse 66; Pulse Ox 100% on R/A; rv 18:33 Body Mass Index 36.80 (103.42 kg, 167.64 cm) iw MDM: 18:37 Patient medically screened. pm1 19:58 Data reviewed: vital signs. Data interpreted: Pulse oximetry: on room air is 100 %. pm1 Interpretation: normal. 19:58 ED course: Pending evaluation by [facility]. pm1 20:50 ED course: Patient evaluated by [facility] and she feels that the patient will be able pm1 to follow up on outpatient basis since she has not plans to kill herself or others and does not want to . Patient just wants to get some sleep. [facility] will setup appointment with psychiatrist next week for followup. . 20:55 Counseling: I had a detailed discussion with the patient and/or guardian regarding: the pm1 historical points, exam findings, and any diagnostic results supporting the discharge/admit diagnosis, lab results, the need for outpatient follow up, a psychiatrist, to return to the emergency department if symptoms worsen or persist or if there are any questions or concerns that arise at home. 03/18 18:37 Order name: Acetaminophen; Complete Time: 19:50 pm1 03/18 18:37 Order name: Basic Metabolic Panel; Complete Time: 19:50 pm1 03/18 18:37 Order name: CBC with Diff; Complete Time: 19:50 pm1 03/18 18:37 Order name: ETOH Level; Complete Time: 19:50 pm1 03/18 18:37 Order name: Hepatic Function; Complete Time: 19:50 pm1 03/18 18:37 Order name: PT-INR; Complete Time: 19:50 pm1 03/18 18:37 Order name: Urine Test (obtain specimen); Complete Time: 19:19 pm1 03/18 18:37 Order name: Ptt, Activated; Complete Time: 19:50 pm1 03/18 18:37 Order name: Salicylate; Complete Time: 19:50 pm1 03/18 18:37 Order name: Urine Drug Screen; Complete Time: 19:50 pm1 03/18 18:37 Order name: EKG; Complete Time: 18:38 pm1 03/18 19:33 Order name: Urine Dipstick--Ancillary (enter results); Complete Time: 19:50 mw2 03/18 19:33 Order name: Urine --Ancillary (enter results); Complete Time: 19:50 mw2 03/18 18:37 Order name: EKG - Nurse/Tech; Complete Time: 19:19 pm1 03/18 18:37 Order name: IV Saline Lock; Complete Time: 19:19 pm1 03/18 18:37 Order name: Labs collected and sent; Complete Time: 19:19 pm1 03/18 18:37 Order name: Urine Dipstick-Ancillary (obtain specimen); Complete Time: 19:19 pm1 Administered Medications: 20:09 Drug: Potassium Effervescent Tablet 50 mEq Route: PO; rv 21:17 Follow up: Response: No adverse reaction rv Disposition: 03/18/18 20:57 Discharged to Home. Impression: Insomnia, Depressive disorder. - Condition is Stable. - Discharge Instructions: Insomnia, Major Depressive Disorder. - Medication Reconciliation Form, Thank You Letter, Antibiotic Education, Prescription Opioid Use form. - Follow up: Emergency Department; When: As needed; Reason: Worsening of condition. Follow up: Vinod Nolan MD; When: 2 - 3 days; Reason: Recheck today's complaints, Continuance of care, Re-evaluation by your physician. - Problem is new. - Symptoms have improved. Addendum: 03/21/2018 07:20 Co-signature as Attending Physician, Pierce De Leon MD I agree with the assessment and k dr plan of care. Signatures: Dispatcher [employer] EDMS Pierce De Leon MD MD kdr Daphne Vigil RN RN iw Mega Montoya, JOAQUIM PIANO ASSEMBLER pm1 Avi Quan RN RN rv Corrections: (The following items were deleted from the chart) 03/18 20:57 20:57 03/18/2018 20:57 Discharged to Home. Impression: Insomnia; Depressive disorder. pm1 Condition is Stable. Forms are Medication Reconciliation Form, Thank You Letter, Antibiotic Education, Prescription Opioid Use. pm1 21:18 20:57 03/18/2018 20:57 Discharged to Home. Impression: Insomnia; Depressive disorder. rv Condition is Stable. Forms are Medication Reconciliation Form, Thank You Letter, Antibiotic Education, Prescription Opioid Use. Follow up: Emergency Department; When: As needed; Reason: Worsening of condition. Follow up: Vinod Nolan; When: 2 - 3 days; Reason: Recheck today's complaints, Continuance of care, Re-evaluation by your physician. Problem is new. Symptoms have improved. pm1
--- NOTE | 2018-03-18 20:58 | ER ---
Nurse's Notes [facility] Name: Anjana Stevenson Age: 42 yrs Sex: Female : 1975 Arrival Date: 03/18/2018 Time: 18:01 Bed 28 Private MD: Vinod Nolan Diagnosis: Insomnia;Depressive disorder Presentation: 03/18 18:22 Risk Assessment: Do you want to hurt yourself or someone else? Patient reports no rv desire to harm self or others. 18:25 Presenting complaint: Patient states: has had issues with insomnia for a couple of iw years, got worse after her daughter dies last year, was seen by her PCP and was given Belsomra but it had the opposite effect and kept her up all night, she stopped taking belsomra and was prescribed zolpidem which she took this morning, then started to have suicidal ideation. Pt states she has never had SI before, does not have a plan to harm herself, pt states that she just feels overwhelmed and that she doesn't want to be here anymore, lives with who is working out of town but daughter lives close by, was dropped off by her daughter, pt also has throbbing headache 05/25. Transition of care: patient was not received from another setting of care. Onset of symptoms was March 18, 2018. Initial Sepsis Screen: Does the patient meet any 2 criteria? No. Patient's initial sepsis screen is negative. Does the patient have a suspected source of infection? No. Patient's initial sepsis screen is negative. Care prior to arrival: None. 18:25 Method Of Arrival: Ambulatory 18:25 Acuity: TAWANDA 2 iw DOPE EDGER: 18:33 LMP 03/01/2018 iw Historical: - Allergies: 18:32 Ibuprofen (Vomiting); iw - PMHx: 18:35 None; iw - PSHx: 18:34 Hernia repair; lumpectomy from back; Cholecystectomy; iw - Immunization history:: Adult Immunizations. - Ebola Screening: : Patient negative for fever greater than or equal to 101.5 degrees Fahrenheit, and additional compatible Ebola Virus Disease symptoms Patient denies exposure to infectious person Patient denies travel to an Ebola-affected area in the 21 days before illness onset No symptoms or risks identified at this time. - Social history:: Smoking status: unknown. Screenin:22 Abuse screen: Denies threats or abuse. Denies injuries from another. Nutritional rv screening: No deficits noted. Tuberculosis screening: No symptoms or risk factors identified. Fall Risk None identified. Assessment: 18:22 General: Appears in no apparent distress. comfortable, Behavior is calm, cooperative. rv Pain: Denies pain. Neuro: Level of Consciousness is awake, alert, obeys commands, Oriented to person, place, time, situation. Cardiovascular: Capillary refill < 3 seconds. Respiratory: Airway is patent. GI: No signs and/or symptoms were reported involving the gastrointestinal system. : No signs and/or symptoms were reported regarding the genitourinary system. EENT: No signs and/or symptoms were reported regarding the EENT system. Derm: Skin is intact. Musculoskeletal: No signs and/or symptoms reported regarding the musculoskeletal system. 19:59 Reassessment: Patient appears in no apparent distress at this time. Patient and/or rv family updated on plan of care and expected duration. Pain level reassessed. Patient is alert, oriented x 3, equal unlabored respirations, skin warm/dry/pink. Vital Signs: 18:33 BP 138 / 111; Pulse 74; Resp 16; Temp 98.4(O); Pulse Ox 100% ; Weight 103.42 kg; Height iw 5 ft. 6 in. (167.64 cm); Pain 10/10; 19:59 BP 135 / 84; Pulse 66; Pulse Ox 100% on R/A; rv 18:33 Body Mass Index 36.80 (103.42 kg, 167.64 cm) iw ED Course: 18:01 Patient arrived in ED. mr 18:01 Vinod Nolan MD is Private Physician. mr 18:23 Patient has correct armband on for positive identification. Bed in low position. Call rv light in reach. Side rails up X 1. Pulse ox on. NIBP on. 18:32 Triage completed. iw 18:33 Arm band placed on. iw 18:36 Mega Montoya NP is PHCP. pm1 18:36 Pierce De Leon MD is Attending Physician. pm1 19:00 Inserted saline lock: 20 gauge in left forearm, using aseptic technique. rv 19:59 Awaiting: psyche evaluation. Safety Checks: Personal items have been removed. The door rv is open or patient has been placed in a hallway bed/chair. 20:57 Vinod Nolan MD is Referral Physician. pm1 21:17 No provider procedures requiring assistance completed. IV discontinued, bleeding rv controlled, No redness/swelling at site. Pressure dressing applied. Administered Medications: 20:09 Drug: Potassium Effervescent Tablet 50 mEq Route: PO; rv 21:17 Follow up: Response: No adverse reaction rv Outcome: :57 Discharge ordered by MD. pm1 21:17 Discharged to home ambulatory. rv 21:17 Condition: good 21:17 Discharge instructions given to patient. 21:18 Patient left the ED. rv Signatures: Carmen Jones Irene, RN RN iw Mega Montoya NP FLAT SPRING ASSEMBLER pm1 Avi Quan RN RN rv
[2018-03-18 21:23] VITALS: TEMP 98.4; O2SAT 100
[2018-03-18 21:24] VITALS: BP 135/84
--- NOTE | 2018-03-19 07:27 | EKG ---
Test Date: 2018-03-18 Test Time: 20:15:38 News Agent: MEASUREMENT RESULTS: Intervals: Rate: 64 RI: 192 QRSD: 78 QT: 408 QTc: 420 [place]: P: 34 RI: 192 QRS: -4 T: 18 INTERPRETIVE STATEMENTS: Normal sinus rhythm Normal ECG No previous ECG available for comparison Electronically Signed On 03-19-18 07:27:21 CDT by Rayray Albert
== END 2018-03-18 21:18 | disposition home or self-care (01) ==
LOC: ER 17:58
DX: F32.9 Major depressive disorder, single episode, unspecified (principal); Z88.6 Allergy status to analgesic agent
CPT/HCPCS: 36415; 80048; 80076; 80307; 80320; 80329; 81003; 81025; 85025; 85610; 85730; 93005; 99283

== ENCOUNTER 2018-03-30 11:47 | Emergency (ER) | payer BC ==
[2018-03-30 13:54] LABS: Urine Blood TRACE (NEG); Urine Glucose NEGATIVE (NEG); Urine Protein NEGATIVE (NEG); Urine Specific Gravity 1.015 (1.005-1.030)
[2018-03-30 14:12] LABS: Barbiturates NEGATIVE (NEGATIVE); Benzodiazepines NEGATIVE (NEGATIVE); Cocaine NEGATIVE (NEGATIVE); METHAMPHETAM NEGATIVE (NEGATIVE); Methadone NEGATIVE (NEGATIVE); Opiates NEGATIVE (NEGATIVE); Phencyclidine NEGATIVE (NEGATIVE); THC Cannibis NEGATIVE (NEGATIVE)
[2018-03-30 14:22] LABS: Absolute Monocytes 0.3 K/uL (0.1-1.3); Absolute Neutrophil 2.4 K/uL (1.8-8.0); Basophils % 0.4 % (0-1.3); Eosinophils % 1.5 % (0-4.4); Hematocrit 32.7 % (36.0-45.0); Lymphocytes % 41.4 % (15.3-44.8); MCH 29.3 pg (27.0-35.0); MCV 87.2 fL (80-100); RBC Red Blood Cell Count 3.75 M/uL (3.86-4.86)
--- NOTE | 2018-03-30 14:27 | EKG ---
Test Date: 2018-03-30 Test Time: 12:21:32 Superintendent Plant Protection: MARILIA MEASUREMENT RESULTS: Intervals: Rate: 77 OK: 164 QRSD: 78 QT: 400 QTc: 452 [place]: P: 30 OK: 164 QRS: -11 T: 1 INTERPRETIVE STATEMENTS: Normal sinus rhythm Normal ECG Compared to ECG 03/18/2018 20:15:38 No significant changes Electronically Signed On 03-30-18 14:26:00 CDT by Rayray Albert
[2018-03-30 14:36] LABS: Protime INR 1.11
[2018-03-30 16:15] LABS: ALT/SGPT 20 U/L (12-78); AST/SGOT 14 U/L (15-37); BUN Blood Urea Nitrogen 13 mg/dL (7-18); Bicarbonate 26 mmol/L (21-32); Glucose Level 93 mg/dL (74-106); Potassium 3.8 mmol/L (3.5-5.1); Sodium Level 141 mmol/L (136-145)
[2018-03-30 16:16] LABS: Albumin 3.3 g/dL (3.4-5.0); Alkaline Phosphatase 79 U/L (45-117); Bilirubin Direct < 0.1 mg/dL (0-0.2); Bilirubin Total 0.2 mg/dL (0.2-1.0); Protein, Total 7.3 g/dL (6.4-8.2)
[2018-03-30 16:17] LABS: Alcohol Serum/Plasma < 3 mg/dL (<3)
--- NOTE | 2018-03-30 20:08 | ER ---
Nurse's Notes [facility] Name: Anjana Stevenson Age: 42 yrs Sex: Female : 1975 Arrival Date: 03/30/2018 Time: 11:52 Bed 17 Private MD: Diagnosis: Major depressive disorder, recurrent, unspecified Presentation: 03/30 11:53 Presenting complaint: Patient states: EMS reports patient ingested Ambien 10mg x 2 and aj Benadryl 25mg x 3 at 1045 and then sent a text to her family saying goodbye. Patient is awake and alert, in NAD. Transition of care: patient was not received from another setting of care. Onset of symptoms was March 30, 2018. Risk Assessment: Do you want to hurt yourself or someone else? Patient reports no desire to harm self or others. Initial Sepsis Screen: Does the patient meet any 2 criteria? No. Patient's initial sepsis screen is negative. Does the patient have a suspected source of infection? No. Patient's initial sepsis screen is negative. Care prior to arrival: Medication(s) given: Normal saline infusion, 1000 mL, IV initiated. 20 GA, in the right forearm. 11:53 Method Of Arrival: EMS: [facility] aj 11:53 Acuity: TAWANDA 2 aj 11:58 Note Patient denies currently wanting to but reports that she took the medication aj knowing it could hurt her. Patient states, "I knew it could hurt me but I was okay with dying if it happened and I took it anyway.". Triage Assessment: 12:00 General: Appears in no apparent distress. comfortable, Behavior is calm, cooperative, aj appropriate for age. Pain: Denies pain. Neuro: Level of Consciousness is awake, alert, obeys commands, Oriented to person, place, time, situation, Appropriate for age Cyber Reverse Engineer are equal bilaterally Moves all extremities. Full function Speech is normal, Facial symmetry appears normal. Respiratory: Airway is patent Respiratory effort is even, unlabored, Respiratory pattern is regular, symmetrical. Derm: Skin is intact, is healthy with good turgor, Skin is pink, warm \\T\\ dry. normal. SQL DATA ARCHITECT: 12:00 LMP 03/25/2018 aj Historical: - Allergies: 12:00 Ibuprofen (Vomiting); aj - Home Meds: 12:00 Ambien 10 mg Oral tab 1 tab once daily [Active]; Belsomra oral oral [Active]; aj - PMHx: 12:00 Insomnia; Bipolar disorder; aj - PSHx: 12:00 None; aj - Immunization history:: Adult Immunizations up to date. - Social history:: Smoking status: Patient/guardian denies using tobacco. - Ebola Screening: : Patient negative for fever greater than or equal to 101.5 degrees Fahrenheit, and additional compatible Ebola Virus Disease symptoms Patient denies exposure to infectious person Patient denies travel to an Ebola-affected area in the 21 days before illness onset No symptoms or risks identified at this time. Screenin:10 Abuse screen: Denies threats or abuse. Denies injuries from another. Nutritional aj screening: No deficits noted. Tuberculosis screening: No symptoms or risk factors identified. Fall Risk. Assessment: 14:10 Reassessment: Patient appears in no apparent distress at this time. No changes from aj previously documented assessment. Patient and/or family updated on plan of care and expected duration. Pain level reassessed. Patient is alert, oriented x 3, equal unlabored respirations, skin warm/dry/pink. See triage assessment. Patient denies pain at this time. 16:42 Reassessment: Patient appears in no apparent distress at this time. No changes from aj previously documented assessment. Patient and/or family updated on plan of care and expected duration. Pain level reassessed. Patient is alert, oriented x 3, equal unlabored respirations, skin warm/dry/pink. Patient ambulated to nurses station and used phone for personal call Patient denies pain at this time. 18:00 Reassessment: Patient appears in no apparent distress at this time. Patient and/or ph family updated on plan of care and expected duration. Pain level reassessed. Patient is alert, oriented x 3, equal unlabored respirations, skin warm/dry/pink. Pt speaking w/ family at bedside, awaiting evaluation by [facility] transportation services representative. 19:05 Reassessment: Report received from CHERELLE Shaw. bs1 19:05 General: Appears in no apparent distress. comfortable, Behavior is calm, cooperative, bs1 appropriate for age. Pain: Denies pain. Neuro: Level of Consciousness is awake, alert, obeys commands. Cardiovascular: Denies chest pain, shortness of breath, Heart tones S1 S2 present Capillary refill < 3 seconds Patient's skin is warm and dry. Respiratory: Airway is patent Trachea midline Respiratory effort is even, unlabored, Respiratory pattern is regular, symmetrical, Breath sounds are clear bilaterally. GI: No signs and/or symptoms were reported involving the gastrointestinal system. : No signs and/or symptoms were reported regarding the genitourinary system. EENT: No signs and/or symptoms were reported regarding the EENT system. Derm: Skin is intact, Skin is pink, warm \\T\\ dry. normal. Musculoskeletal: Circulation, motion, and sensation intact. Capillary refill < 3 seconds, Range of motion: intact in all extremities. 19:45 Reassessment: [facility] at bedside. bs1 20:30 Reassessment: Patient and family state understanding of dc instructions/POC. bs1 Psych: 12:02 Subjective: Patient's mood is sad, Delusions are denied, Hallucinations are denied aj Having thoughts of Denies suicidal thoughts currently but reports that she was aware taking the medications she ingested could harm her and "I was okay with it if they did." Patient then sent out text to family saying goodbye. Objective: Patient is cooperative, Speech is normal, Affect is flat. Interventions: Removed personal items and placed in bag. Patient placed in hospital gown. Searched person for dangerous items. Suicide Risk Assessment: Sad Person Scale: Sex of patient: Female: Score 0 points. Age of patient: Score 0 point if patient falls outside of specified age parameters. Depression: Score 1 point if signs of depression are present. Previous Attempt: Score 0 point if patient has not previously attempted suicide. Substance Abuse: Score 0 point if patient does not abuse alcohol or drugs. Rational Thinking: Score 0 point if patient has rational thinking. Social Support: Score 0 if social support is present/available. Organized Plan: Score 0 if patient did not have an organized plan in place. Relationship: Score 1 point if patient is , , , or for a single male Chronic Sickness: Score 0 point if patient does not have a chronic illness, debilitating, or severe disorder. Safety Checks: Personal items have been removed. Door is open. Visitors are present. Pt denies substance abuse. Commitment: Patient will be a voluntary commitment. 19:22 Safety Checks: Personal items have been removed. Door is open. Visitors are present. kk5 19:43 Safety Checks: Personal items have been removed. Door is closed to patient's room. [address] bedside at this time. 19:55 Safety Checks: Personal items have been removed. Door is open. Visitors are present. [address] speaking with medical team. 20:04 Safety Checks: Personal items have been removed. Door is open. Visitors are present. [facility] 20:11 Safety Checks: Personal items have been removed. Door is open. Visitors are present. [facility] 20:35 Safety Checks: Personal items have been removed. Door is open. Pt left ED with family [facility] members. Vital Signs: 12:00 BP 128 / 75; Pulse 79; Resp 16; Temp 97.9; Pulse Ox 98% on R/A; Weight 126.1 kg; Height aj 5 ft. 6 in. (167.64 cm); 16:52 BP 122 / 78; Pulse 71; Resp 16; Pulse Ox 99% on R/A; aj 18:41 BP 128 / 92; Pulse 77; Resp 18; Pulse Ox 100% on R/A; ag 20:03 BP 128 / 87; Pulse 100; Resp 16; Temp 97.9; Pulse Ox 98% ; kk5 12:00 Body Mass Index 44.87 (126.10 kg, 167.64 cm) ED Course: 11:52 Patient arrived in ED. aj 11:57 Triage completed. aj 12:00 Arm band placed on left wrist. Patient placed in an exam room, on a stretcher, Patient aj Room cleared per protocol. 12:01 Safety checks: Items removed: yes. Door open/sign placed on door: yes. Family/friend ag present: no. Sitter present: Yes. Patient has correct armband on for positive identification. Placed in gown. Bed in low position. Side rails up X2. Sitter at bedside. 12:03 Ana Valle FNP-C is PHCP. kb 12:03 Pierce De Leon MD is Attending Physician. kb 12:06 Annie Rouse RN is Primary Nurse. aj 12:15 Safety checks: Items removed: yes. Door open/sign placed on door: yes. Family/friend ag present: yes. Sitter present: Yes. 12:25 EKG done, by cath lab tech. reviewed by Ana MCMAHON. at1 12:30 Safety checks: Items removed: yes. Door open/sign placed on door: yes. Family/friend ag present: yes. Sitter present: Yes. 12:36 Inserted saline lock: 20 gauge in right forearm, using aseptic technique. ,using ag aseptic technique. IV started by [facility]. 12:45 Safety checks: Items removed: yes. Door open/sign placed on door: yes. Family/friend ag present: yes. Sitter present: Yes. 13:00 Safety checks: Items removed: yes. Door open/sign placed on door: yes. Family/friend ag present: no. Sitter present: Yes. 13:15 Safety checks: Items removed: yes. Door open/sign placed on door: yes. Family/friend ag present: no. Sitter present: Yes. 13:30 Safety checks: Items removed: yes. Door open/sign placed on door: yes. Family/friend ag present: no. Sitter present: Yes. 13:35 Urine collected: clean catch specimen, clear, corky colored. 3 13:45 Safety checks: Items removed: yes. Door open/sign placed on door: yes. Family/friend ag present: no. Sitter present: Yes. 14:00 Safety checks: Items removed: yes. Door open/sign placed on door: yes. Family/friend ag present: no. Sitter present: Yes. 14:12 Diet tray given. aj 14:15 Safety checks: Items removed: yes. Door open/sign placed on door: yes. Family/friend ag present: no. Sitter present: Yes. 14:30 Safety checks: Items removed: yes. Door open/sign placed on door: yes. Family/friend ag present: no. Sitter present: Yes. 14:45 Safety checks: Items removed: yes. Door open/sign placed on door: yes. Family/friend ag present: no. Sitter present: Yes. 15:00 Safety checks: Items removed: yes. Door open/sign placed on door: yes. Family/friend ag present: no. Sitter present: Yes. 15:15 Safety checks: Items removed: yes. Door open/sign placed on door: yes. Family/friend ag present: no. Sitter present: Yes. 15:30 Safety checks: Items removed: yes. Door open/sign placed on door: yes. Family/friend ag present: no. Sitter present: Yes. 15:45 Safety checks: Items removed: yes. Door open/sign placed on door: yes. Family/friend ag present: no. Sitter present: Yes. 16:00 Safety checks: Items removed: yes. Door open/sign placed on door: yes. Family/friend ag present: no. Sitter present: Yes. 16:15 Safety checks: Items removed: yes. Door open/sign placed on door: yes. Family/friend ag present: no. Sitter present: Yes. 16:30 Safety Checks: Personal items have been removed. The door is open or patient has been aj placed in a hallway bed/chair. Sitter present at this time. 16:30 Safety checks: Items removed: yes. Door open/sign placed on door: yes. Family/friend ag present: no. Sitter present: Yes. 16:31 called and spoke with Lacho at the [facility] who will page out a screener to eb come evaluate the patient for a potential transfer. 16:45 Safety Checks: Personal items have been removed. The door is open or patient has been aj placed in a hallway bed/chair. There are no family/friend visitors at this time Sitter present at this time. 16:45 Safety checks: Items removed: yes. Door open/sign placed on door: yes. Family/friend ag present: no. Sitter present: Yes. 17:00 Safety Checks: Personal items have been removed. The door is open or patient has been sg placed in a hallway bed/chair. There are no family/friend visitors at this time Sitter present at this time. 17:00 Safety checks: Items removed: yes. Door open/sign placed on door: yes. Family/friend ag present: no. Sitter present: Yes. 17:15 Safety Checks: Personal items have been removed. The door is open or patient has been sg placed in a hallway bed/chair. There are no family/friend visitors at this time Sitter present at this time. 17:15 Safety checks: Items removed: yes. Door open/sign placed on door: yes. Family/friend ag present: yes. Sitter present: Yes. 17:24 Johnny from [facility] called to inform ED that she has received the page. ETA [id number]. mb4 17:30 Safety Checks: Personal items have been removed. The door is open or patient has been sg placed in a hallway bed/chair. There are no family/friend visitors at this time Sitter present at this time. 17:30 Safety checks: Items removed: yes. Door open/sign placed on door: yes. Family/friend ag present: yes. Sitter present: Yes. 17:45 Safety checks: Items removed: yes. Door open/sign placed on door: yes. Family/friend ag present: yes. Sitter present: Yes. 18:00 Safety checks: Items removed: yes. Door open/sign placed on door: yes. Family/friend kk5 present: yes. Sitter present: Yes. 18:15 Safety checks: Items removed: yes. Door open/sign placed on door: yes. Family/friend ag present: yes. Sitter present: Yes. 18:30 Safety checks: Items removed: yes. Door open/sign placed on door: yes. Family/friend ag present: yes. Sitter present: Yes. 18:45 Safety checks: Items removed: yes. Door open/sign placed on door: yes. Family/friend ag present: yes. Sitter present: Yes. 19:13 Arm band placed on. kk5 19:14 Patient has correct armband on for positive identification. Bed in low position. kk5 19:23 [facility] bedside at this time. kk5 19:32 Safety Checks: Personal items have been removed. The door is open or patient has been kk5 placed in a hallway bed/chair. [facility] bedside at this time Sitter present at this time. 20:37 No provider procedures requiring assistance completed. IV discontinued, bleeding bs1 controlled, No redness/swelling at site. Pressure dressing applied. Administered Medications: No medications were administered Outcome: 20:08 Discharge ordered by MD. friedman 20:37 Discharged to home ambulatory. bs1 20:37 Condition: stable 20:37 Discharge instructions given to patient, family, Instructed on discharge instructions, follow up and referral plans. Demonstrated understanding of instructions, follow-up care. 20:39 Patient left the ED. bs1 Signatures: Ana Valle, YARN EXAMINER-C CHELA-Teddy Pineda RN RN sg Myers, Amanda, RN RN aj Gonzales, Amanda, mechanic's assistant EKG Tat1 Karen Garcia Patricia, RN RN Sena May RN RN bs1 Nidia Lara Jacob jp3 Berta Edmondson kk5 Hermila Chaudhary mb4 Corrections: (The following items were deleted from the chart) 13:49 12:35 CBC+H.LAB.BRZ drawn and sent. ag EDMS 13:49 12:35 PROTIME (+INR)+COAG.LAB.BRZ drawn and sent. ag EDMS 13:49 12:36 PTT, ACTIVATED+COAG.LAB.BRZ drawn and sent. ag EDMS 13:50 12:35 ACETAMINOPHEN+C.LAB.BRZ drawn and sent. ag EDMS 13:50 12:35 BASIC METABOLIC PANEL+C.LAB.BRZ drawn and sent. ag EDMS 13:50 12:35 ETHANOL+C.LAB.BRZ drawn and sent. ag EDMS 13:50 12:35 HEPATIC FUNCTION+C.LAB.BRZ drawn and sent. ag EDMS 13:50 12:36 SALICYLATE+C.LAB.BRZ drawn and sent. EDMS 14:12 14:10 Provided with oj. phyllis ferguson 19:27 18:00 Safety checks: Items removed: yes. Door open/sign placed on door: yes. kk5 Family/friend present: yes. Sitter present: Yes.
--- NOTE | 2018-03-30 20:08 | EDPHYS ---
Physician Documentation [facility] Name: Anjana Stevenson Age: 42 yrs Sex: Female : 1975 Arrival Date: 03/30/2018 Time: 11:52 Bed 17 Private MD: ED Physician Pierce De Leon HPI: 03/30 17:17 This 42 yrs old Black Female presents to ER via EMS with complaints of Psych Problem. kb 17:17 The patient presents to the emergency department with depression, over a , the kb patient's child, a history of a suicide gesture, where the patient took pills/medications, benadryl and ambien. Onset: The symptoms/episode began/occurred years ago, but became worse last year. Past psychiatric history: Prior diagnosis: depression, Psychiatric medications include: none. Associated signs and symptoms: Pertinent positives; depression. Severity of symptoms: At their worst the symptoms were moderate in the emergency department the symptoms are unchanged. The patient has not experienced similar symptoms in the past. The patient has not recently seen a physician. Pt states she took ambien and benadryl today because she wanted to go to sleep and not think about anything. States she was not intending to kill herself, she just wanted to go to sleep and not think. States she didn't care if she lived or though. States she has had depression for many years, but it has been worse for the last year after the of her daughter. States nothing has been the same since then. . 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 - Social history:: Smoking status: Patient/guardian denies using tobacco. - Ebola Screening: : Patient negative for fever greater than or equal to 101.5 degrees Fahrenheit, and additional compatible Ebola Virus Disease symptoms Patient denies exposure to infectious person Patient denies travel to an Ebola-affected area in the 21 days before illness onset No symptoms or risks identified at this time. ROS: 17:15 Constitutional: Negative for fever, chills, and weight loss, ENT: Negative for injury, kb pain, and discharge, Neck: Negative for injury, pain, and swelling, Cardiovascular: Negative for chest pain, palpitations, and edema, Respiratory: Negative for shortness of breath, cough, wheezing, and pleuritic chest pain, Abdomen/GI: Negative for abdominal pain, nausea, vomiting, diarrhea, and constipation, Back: Negative for injury and pain, : Negative for injury, bleeding, discharge, and swelling, MS/Extremity: Negative for injury and deformity, Skin: Negative for injury, rash, and discoloration, Neuro: Negative for headache, weakness, numbness, tingling, and seizure. 17:15 Psych: Positive for depression, Negative for anxiety, drug dependence, alcohol dependence, auditory hallucinations, visual hallucinations, homicidal ideation, insomnia, suicide gesture, suicidal ideation. Exam: 17:15 Constitutional: This is a well developed, well nourished patient who is awake, alert, kb and in no acute distress. Head/Face: Normocephalic, atraumatic. ENT: Nares patent. No nasal discharge, no septal abnormalities noted. Tympanic membranes are normal and external auditory canals are clear. Oropharynx with no redness, swelling, or masses, exudates, or evidence of obstruction, uvula midline. Mucous membranes moist. Neck: Trachea midline, no thyromegaly or masses palpated, and no cervical lymphadenopathy. Supple, full range of motion without nuchal rigidity, or vertebral point tenderness. No Meningismus. Chest/axilla: Normal chest wall appearance and motion. Nontender with no deformity. No lesions are appreciated. Cardiovascular: Regular rate and rhythm with a normal S1 and S2. No gallops, murmurs, or rubs. Normal PMI, no JVD. No pulse deficits. Respiratory: Lungs have equal breath sounds bilaterally, clear to auscultation and percussion. No rales, rhonchi or wheezes noted. No increased work of breathing, no retractions or nasal flaring. Abdomen/GI: Soft, non-tender, with normal bowel sounds. No distension or tympany. No guarding or rebound. No evidence of tenderness throughout. Back: No spinal tenderness. No costovertebral tenderness. Full range of motion. Skin: Warm, dry with normal turgor. Normal color with no rashes, no lesions, and no evidence of cellulitis. MS/ Extremity: Pulses equal, no cyanosis. Neurovascular intact. Full, normal range of motion. Neuro: Awake and alert, GCS 15, oriented to person, place, time, and situation. Cranial nerves II-XII grossly intact. Motor strength 5/5 in all extremities. Sensory grossly intact. Cerebellar exam normal. Normal gait. 17:15 Psych: Behavior/mood is cooperative, depressed, Affect is calm, Oriented to person, place, time, reports she doesn't care if she lives or dies, but did not intend to kill herself, Judgement / Insight is normal. Memory is normal. Delusions/hallucinations are not present. Vital Signs: 12:00 BP 128 / 75; Pulse 79; Resp 16; Temp 97.9; Pulse Ox 98% on R/A; Weight 126.1 kg; Height aj 5 ft. 6 in. (167.64 cm); 16:52 BP 122 / 78; Pulse 71; Resp 16; Pulse Ox 99% on R/A; aj 18:41 BP 128 / 92; Pulse 77; Resp 18; Pulse Ox 100% on R/A; ag 20:03 BP 128 / 87; Pulse 100; Resp 16; Temp 97.9; Pulse Ox 98% ; kk5 12:00 Body Mass Index 44.87 (126.10 kg, 167.64 cm) aj MDM: 12:04 Patient medically screened. kb 17:15 Data reviewed: vital signs, nurses notes. Data interpreted: Pulse oximetry: on room air kb is 99 %. Interpretation: normal. 20:04 Counseling: I had a detailed discussion with the patient and/or guardian regarding: the kb historical points, exam findings, and any diagnostic results supporting the discharge/admit diagnosis, lab results, the need for outpatient follow up, a family practitioner, to return to the emergency department if symptoms worsen or persist or if there are any questions or concerns that arise at home. ED course: Shanda Cadet screener came to evaluate pt. Pt has an appt with Shanda cadet on Wednesday and will keep that appt. Pt denies being suicidal. . 03/30 12:04 Order name: Urine Drug Screen; Complete Time: 14:15 kb 03/30 13:47 Order name: Urine Dipstick--Ancillary (enter results); Complete Time: 14:01 mb4 08/15 13:47 Order name: Urine --Ancillary (enter results); Complete Time: 14:01 mb4 03/30 13:48 Order name: Salicylate; Complete Time: 18:22 aj 03/30 13:48 Order name: Ptt, Activated; Complete Time: 14:41 aj 03/30 13:48 Order name: PT-INR; Complete Time: 14:41 aj 03/30 12:04 Order name: Urine Test (obtain specimen); Complete Time: 12:06 kb 03/30 12:04 Order name: EKG; Complete Time: 12:04 kb 03/30 12:04 Order name: EKG - Nurse/Tech; Complete Time: 12:36 kb 03/30 12:04 Order name: IV Saline Lock; Complete Time: 12:06 kb 03/30 12:04 Order name: Labs collected and sent; Complete Time: 12:32 kb 03/30 12:04 Order name: Urine Dipstick-Ancillary (obtain specimen); Complete Time: 15:18 kb 03/30 12:55 Order name: Diet Regular; Complete Time: 12:56 ag 03/30 13:48 Order name: Hepatic Function; Complete Time: 16:45 aj 03/30 13:48 Order name: ETOH Level; Complete Time: 16:45 aj 03/30 13:48 Order name: CBC with Diff; Complete Time: 14:32 aj 03/30 13:48 Order name: Basic Metabolic Panel; Complete Time: 16:45 aj 03/30 13:48 Order name: Acetaminophen; Complete Time: 16:45 aj Administered Medications: No medications were administered Disposition: 03/30/18 20:08 Discharged to Home. Impression: Major depressive disorder, recurrent, unspecified. - Condition is Stable. - Discharge Instructions: Major Depressive Disorder, [id number]. - Medication Reconciliation Form, Thank You Letter, Antibiotic Education, Prescription Opioid Use form. - Follow up: Emergency Department; When: As needed; Reason: Worsening of condition. Follow up: Private Physician; When: 2 - 3 days; Reason: Recheck today's complaints, Continuance of care, Re-evaluation by your physician. Addendum: 04/14/2018 10:53 Co-signature as Attending Physician, Pierce De Leon MD I agree with the assessment and k dr plan of care. Signatures: Dispatcher [employer] EDMS Ana Valle, PUBLIC HEALTH PROGRAM MANAGER-C PUBLIC HEALTH PROGRAM MANAGER-Ckb Annie Rouse RN RN Pierce Garza MD MD kdr Salazar, Brittany, RN RN bs1 Corrections: (The following items were deleted from the chart) 03/30 13:49 12:04 CBC+H.LAB.BRZ ordered. EDMS EDMS 13:49 12:04 PROTIME (+INR)+COAG.LAB.BRZ ordered. EDMS EDMS 13:49 12:04 PTT, ACTIVATED+COAG.LAB.BRZ ordered. EDMS EDMS 13:49 13:26 CBC+H.LAB.BRZ reviewed. kb EDMS 13:49 13:26 PROTIME (+INR)+COAG.LAB.BRZ reviewed. kb EDMS 13:49 13:26 PTT, ACTIVATED+COAG.LAB.BRZ reviewed. kb EDMS 13:50 12:04 ACETAMINOPHEN+C.LAB.BRZ ordered. EDMS EDMS 13:50 12:04 BASIC METABOLIC PANEL+C.LAB.BRZ ordered. EDMS EDMS 13:50 12:04 ETHANOL+C.LAB.BRZ ordered. EDMS EDMS 13:50 12:04 HEPATIC FUNCTION+C.LAB.BRZ ordered. EDMS EDMS 13:50 12:04 SALICYLATE+C.LAB.BRZ ordered. EDMS EDMS 17:16 17:15 Psych: Positive for depression, kb kb 20:39 20:08 03/30/2018 20:08 Discharged to Home. Impression: Major depressive disorder, bs1 recurrent, unspecified. Condition is Stable. Forms are Medication Reconciliation Form, Thank You Letter, Antibiotic Education, Prescription Opioid Use. Follow up: Emergency Department; When: As needed; Reason: Worsening of condition. Follow up: Private Physician; When: 2 - 3 days; Reason: Recheck today's complaints, Continuance of care, Re-evaluation by your physician. kb
[2018-03-30 20:43] VITALS: TEMP 97.9
[2018-03-30 20:46] VITALS: BP 128/87; O2SAT 98
== END 2018-03-30 20:39 | disposition home or self-care (01) ==
LOC: ER 11:47
DX: F33.9 Major depressive disorder, recurrent, unspecified (principal); F31.9 Bipolar disorder, unspecified; Z88.6 Allergy status to analgesic agent
CPT/HCPCS: 36415; 80048; 80076; 80307; 80320; 80329; 81003; 81025; 85025; 85610; 85730; 93005; 99285

== ENCOUNTER 2018-04-27 10:10 | Emergency (ER) | payer BC ==
[2018-04-27] MEDS ORDERED: IPRATROPIUM BROM 0.5MG/2.5ML ONE (10:44)
[2018-04-27] MEDS ORDERED: ALBUTEROL 2.5 MG/3 ML NEB SOL ONE (10:44)
--- NOTE | 2018-04-27 11:33 | EDPHYS ---
Physician Documentation [facility] Name: Anjana Stevenson Age: 43 yrs Sex: Female : 1975 Arrival Date: 04/27/2018 Time: 10:14 Bed 23 Private MD: Vinod Nolan ED Physician Ronnell Milton HPI: 04/27 11:17 This 43 yrs old Black Female presents to ER via Ambulatory with complaints of Sore kb Throat. 11:17 The patient presents with sore throat. The patient describes throat pain as constant. kb Onset: The symptoms/episode began/occurred 3 day(s) ago. Severity of symptoms: At their worst the symptoms were moderate, in the emergency department the symptoms are unchanged. Modifying factors: The symptoms are alleviated by nothing, the symptoms are aggravated by nothing, Patient's oral intake status: good. Associated signs and symptoms: Pertinent positives: cough, flu-like symptoms, myalgias, rhinorrhea, Sore throat. The patient has not experienced similar symptoms in the past. The patient has not recently seen a physician. Pt reports sore throat, cough, congestion, body aches and malaise for 3 days. Has taken theraflu without relief. Denies fever. 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 - Social history:: Smoking status: Patient/guardian denies using tobacco. - Ebola Screening: : Patient denies exposure to infectious person Patient denies travel to an Ebola-affected area in the 21 days before illness onset. ROS: 11:16 Cardiovascular: Negative for chest pain, palpitations, and edema, Abdomen/GI: Negative kb for abdominal pain, nausea, vomiting, diarrhea, and constipation, : Negative for injury, bleeding, discharge, and swelling, MS/Extremity: Negative for injury and deformity, Skin: Negative for injury, rash, and discoloration, Neuro: Negative for headache, weakness, numbness, tingling, and seizure. 11:16 Constitutional: Positive for body aches, malaise, Negative for chills, fatigue, fever, poor PO intake, weight loss. 11:16 ENT: Positive for rhinorrhea, sinus congestion, sore throat. 11:16 Respiratory: Positive for cough, Negative for dyspnea on exertion, hemoptysis, orthopnea, pleurisy, shortness of breath, sputum production, wheezing. Exam: 11:16 Constitutional: This is a well developed, well nourished patient who is awake, alert, kb and in no acute distress. Head/Face: Normocephalic, atraumatic. Neck: Trachea midline, no thyromegaly or masses palpated, and no cervical lymphadenopathy. Supple, full range of motion without nuchal rigidity, or vertebral point tenderness. No Meningismus. Chest/axilla: Normal chest wall appearance and motion. Nontender with no deformity. No lesions are appreciated. Cardiovascular: Regular rate and rhythm with a normal S1 and S2. No gallops, murmurs, or rubs. Normal PMI, no JVD. No pulse deficits. Respiratory: Lungs have equal breath sounds bilaterally, clear to auscultation and percussion. No rales, rhonchi or wheezes noted. No increased work of breathing, no retractions or nasal flaring. Abdomen/GI: Soft, non-tender, with normal bowel sounds. No distension or tympany. No guarding or rebound. No evidence of tenderness throughout. Skin: Warm, dry with normal turgor. Normal color with no rashes, no lesions, and no evidence of cellulitis. MS/ Extremity: Pulses equal, no cyanosis. Neurovascular intact. Full, normal range of motion. Neuro: Awake and alert, GCS 15, oriented to person, place, time, and situation. Cranial nerves II-XII grossly intact. Motor strength 5/5 in all extremities. Sensory grossly intact. Cerebellar exam normal. Normal gait. 11:16 ENT: Posterior pharynx: Airway: normal, no evidence of obstruction, Tonsils: with erythema, Uvula: normal, midline, swelling, is not appreciated, erythema, that is mild, that is moderate, exudate, is not appreciated. Vital Signs: 10:30 BP 134 / 85; Pulse 72; Resp 18; Temp 99; Pulse Ox 100% ; Weight 108.86 kg; Height 5 ft. sv 6 in. (167.64 cm); Pain 9/10; 10:30 Body Mass Index 38.74 (108.86 kg, 167.64 cm) sv MDM: 10:32 Patient medically screened. kb 11:16 Data reviewed: vital signs, nurses notes. Data interpreted: Pulse oximetry: on room air kb is 100 %. Interpretation: normal. Counseling: I had a detailed discussion with the patient and/or guardian regarding: the historical points, exam findings, and any diagnostic results supporting the discharge/admit diagnosis, lab results, the need for outpatient follow up, a family practitioner, to return to the emergency department if symptoms worsen or persist or if there are any questions or concerns that arise at home. 04/27 10:32 Order name: Strep 04/27 10:32 Order name: Flu 04/27 10:33 Order name: Group A Streptococcus Rapid Sc; Complete Time: 11:03 EDRI 04/27 10:33 Order name: Influenza Screen (A ; Complete Time: 11:03 EDMS 04/27 11:04 Order name: Throat Culture EDMS Administered Medications: 10:45 Drug: DuoNeb (3:1) (2.5 mg - 0.5 mg) 3 ml Route: Nebulizer; 11:30 Follow up: Response: No adverse reaction; Marked relief of symptoms Disposition: 18:51 Co-signature as Attending Physician, Ronnell Milton MD. ma2 Disposition: 04/27/18 11:32 Discharged to Home. Impression: Acute upper respiratory infection, unspecified. - Condition is Stable. - Discharge Instructions: Upper Respiratory Infection, Adult, [id number]. - Prescriptions for Prednisone 20 mg Oral Tablet - take 1 tablet by ORAL route once daily for 5 days; 5 tablet. Albuterol Sulfate 90 mcg/actuation - inhale 1-2 puff by INHALATION route every 4-6 hours; 1 Inhaler. - Medication Reconciliation Form, Thank You Letter, Antibiotic Education, Prescription Opioid Use form. - Follow up: Emergency Department; When: As needed; Reason: Worsening of condition. Follow up: Private Physician; When: 2 - 3 days; Reason: Recheck today's complaints, Continuance of care, Re-evaluation by your physician. Signatures: Dispatcher [employer] EDRI Ana Valle, Lydia Ahuja RN RN sv Smirch, Shelby, RN RN Ronnell Milton MD MD ma2 Corrections: (The following items were deleted from the chart) 11:37 11:32 04/27/2018 11:32 Discharged to Home. Impression: Acute upper respiratory ss infection, unspecified. Condition is Stable. Discharge Instructions: Upper Respiratory Infection, Adult, [id number]. Prescriptions for Prednisone 20 mg Oral Tablet - take 1 tablet by ORAL route once daily for 5 days; 5 tablet, Albuterol Sulfate 90 mcg/actuation - inhale 1-2 puff by INHALATION route every 4-6 hours; 1 Inhaler. and Forms are Medication Reconciliation Form, Thank You Letter, Antibiotic Education, Prescription Opioid Use. Follow up: Emergency Department; When: As needed; Reason: Worsening of condition. Follow up: Private Physician; When: 2 - 3 days; Reason: Recheck today's complaints, Continuance of care, Re-evaluation by your physician. kb
--- NOTE | 2018-04-27 11:33 | ER ---
Nurse's Notes [facility] Name: Anjana Stevenson Age: 43 yrs Sex: Female : 1975 Arrival Date: 04/27/2018 Time: 10:14 Bed 23 Private MD: Vinod Nolan Diagnosis: Acute upper respiratory infection, unspecified Presentation: 04/27 10:28 Presenting complaint: Patient states: sore throat,body aches, cough, chest pain with sv coughing for 3 days. Transition of care: patient was not received from another setting of care. Onset of symptoms was April 24, 2018. Care prior to arrival: Medication(s) given: Theraflu and chlorseptic taken. 10:28 Method Of Arrival: Ambulatory sv 10:28 Acuity: TAWANDA 4 sv 11:36 Risk Assessment: Do you want to hurt yourself or someone else? Patient reports no ss desire to harm self or others. Initial Sepsis Screen: Does the patient meet any 2 criteria? No. Patient's initial sepsis screen is negative. Does the patient have a suspected source of infection? No. Patient's initial sepsis screen is negative. 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 - Social history:: Smoking status: Patient/guardian denies using tobacco. - Ebola Screening: : Patient denies exposure to infectious person Patient denies travel to an Ebola-affected area in the 21 days before illness onset. Screenin:46 Abuse screen: Denies threats or abuse. Denies injuries from another. Nutritional ss screening: No deficits noted. Tuberculosis screening: Never had TB. Fall Risk None identified. Assessment: 10:46 General: Appears uncomfortable, ill, Behavior is calm, cooperative, Reports feeling ill ss for 2-3 days, fatigue for 2-3 days, Denies fever. Pain: Complains of pain in sore throat, headache, generalized body aches Pain currently is 9 out of 10 on a pain scale. Quality of pain is described as aching, Pain began 3 days Is continuous. Neuro: Level of Consciousness is awake, alert, obeys commands, Oriented to person, place, time, situation. Neuro: Reports headache. Cardiovascular: Capillary refill < 3 seconds is brisk in bilateral fingers. Respiratory: Reports cough that is dry, hacking, persistent since x 3 Airway is patent Respiratory effort is even, unlabored, Respiratory pattern is regular, symmetrical, Breath sounds are clear bilaterally. GI: Patient currently denies diarrhea, nausea, vomiting. : No signs and/or symptoms were reported regarding the genitourinary system. EENT: Oral mucosa is moist. Throat is clear. Derm: Skin is intact, is healthy with good turgor, Skin is pink, warm \T\ dry. Musculoskeletal: Circulation, motion, and sensation intact. Range of motion: intact in all extremities, Swelling absent. 11:30 Reassessment: Patient appears in no apparent distress at this time. Patient and/or ss family updated on plan of care and expected duration. Pain level reassessed. Patient is alert, oriented x 3, equal unlabored respirations, skin warm/dry/pink. Respiratory: Respiratory effort is even, unlabored, Respiratory pattern is regular, symmetrical. Vital Signs: 10:30 BP 134 / 85; Pulse 72; Resp 18; Temp 99; Pulse Ox 100% ; Weight 108.86 kg; Height 5 ft. sv 6 in. (167.64 cm); Pain 9/10; 10:30 Body Mass Index 38.74 (108.86 kg, 167.64 cm) sv ED Course: 10:14 Patient arrived in ED. sb2 10:14 Vinod Nolan MD is Private Physician. sb2 10:15 Ana Valle FNP-C is [facility]. kb 10:15 Ronnell Milton MD is Attending Physician. kb 10:29 Triage completed. sv 10:30 Arm band placed on right wrist. sv 10:46 Patient has correct armband on for positive identification. Bed in low position. Call ss light in reach. Side rails up X 1. 10:58 Flu Sent. sv 10:58 Strep Sent. sv 11:20 Breonna Schwab, CHERELLE is Primary Nurse. ss 11:36 No provider procedures requiring assistance completed. Patient did not have IV access ss during this emergency room visit. Administered Medications: 10:45 Drug: DuoNeb (3:1) (2.5 mg - 0.5 mg) 3 ml Route: Nebulizer; ss 11:30 Follow up: Response: No adverse reaction; Marked relief of symptoms ss Outcome: 11:32 Discharge ordered by MD. friedman 11:36 Discharged to home ambulatory. ss 11:36 Condition: good 11:36 Discharge instructions given to patient, Instructed on discharge instructions, follow up and referral plans. medication usage, Demonstrated understanding of instructions, follow-up care, medications, Prescriptions given X 2. 11:37 Patient left the ED. Signatures: Ana Valle, CHELA-C FAST FOOD SALES ASSISTANT-Lydia Jacob RN RN Breonna Schwab RN RN Ryann Sullivan sb2 Corrections: (The following items were deleted from the chart) 10:30 10:28 Presenting complaint: Patient states: sore throat, cough, chest pain with sv coughing for 3 days. sv 10:30 10:28 Care prior to arrival: Medication(s) given: Theraflu taken sv sv
[2018-04-27 11:44] VITALS: BP 134/85; TEMP 99; O2SAT 100
== END 2018-04-27 11:37 | disposition home or self-care (01) ==
LOC: ER 10:10
DX: J06.9 Acute upper respiratory infection, unspecified (principal); Z88.6 Allergy status to analgesic agent
CPT/HCPCS: 87070; 87081; 87804; 94640; 99284

== ENCOUNTER 2018-06-25 10:05 | Observation (INO) | payer BC ==
[2018-06-25 11:14] LABS: Absolute Lymphocytes (CBC) 1.8 K/uL (0.7-4.9); Absolute Monocytes 0.2 K/uL (0.1-1.3); Absolute Neutrophil 2.8 K/uL (1.8-8.0); Basophils % 0.5 % (0-1.3); Eosinophils % 2.8 % (0-4.4); Hematocrit 35.1 % (36.0-45.0); Lymphocytes % 35.4 % (15.3-44.8); MCH 29.1 pg (27.0-35.0); MCV 86.3 fL (80-100); MPV 8.9 fL (7.6-11.3); Monocytes % 4.7 % (3.3-12.3); RBC Red Blood Cell Count 4.06 M/uL (3.86-4.86)
[2018-06-25 11:22] LABS: Protime INR 1.05
[2018-06-25 11:26] LABS: Barbiturates NEGATIVE (NEGATIVE); Benzodiazepines NEGATIVE (NEGATIVE); Cocaine NEGATIVE (NEGATIVE); METHAMPHETAM NEGATIVE (NEGATIVE); Methadone NEGATIVE (NEGATIVE); Opiates NEGATIVE (NEGATIVE); Phencyclidine NEGATIVE (NEGATIVE); THC Cannibis NEGATIVE (NEGATIVE)
[2018-06-25 11:32] LABS: ALT/SGPT 20 U/L (12-78); AST/SGOT 12 U/L (15-37); Albumin 3.8 g/dL (3.4-5.0); Alkaline Phosphatase 107 U/L (45-117); BUN Blood Urea Nitrogen 11 mg/dL (7-18); Bicarbonate 28 mmol/L (21-32); Bilirubin Direct < 0.1 mg/dL (0-0.2); Bilirubin Total 0.3 mg/dL (0.2-1.0); Glucose Level 109 mg/dL (74-106); Potassium 3.8 mmol/L (3.5-5.1); Protein, Total 8.5 g/dL (6.4-8.2); Sodium Level 141 mmol/L (136-145)
[2018-06-25 12:36] LABS: Urine Blood NEGATIVE (NEG); Urine Glucose NEGATIVE (NEG); Urine Protein NEGATIVE (NEG); Urine pH 5.5 (5.0-7.0)
--- NOTE | 2018-06-25 13:52 | EDPHYS ---
Physician Documentation [facility] Name: Anjana Stevenson Age: 43 yrs Sex: Female : 1975 Arrival Date: 06/25/2018 Time: 10:13 Bed 3 Private MD: Vinod Nolan ED Physician Zoltan Forrester HPI: 06/25 13:56 This 43 yrs old Black Female presents to ER via EMS with complaints of Overdose. jr8 13:56 The patient presents to the emergency department after a known overdose, that was jr8 intentional. 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 Associated signs and symptoms: The patient has no apparent associated signs or symptoms. Severity of symptoms: At their worst the symptoms were moderate in the emergency department the symptoms are unchanged. It is unknown whether or not the patient has had similar symptoms in the past. The patient has not recently seen a physician. According to EMS. Patient stated that she had recent loss of daughter and separation of . Has been very depressed and withdrawn. History of Bipolar disorder as well . 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 - Social history:: Smoking status: Patient/guardian denies using tobacco. - Ebola Screening: : Patient negative for fever greater than or equal to 101.5 degrees Fahrenheit, and additional compatible Ebola Virus Disease symptoms Patient denies exposure to infectious person Patient denies travel to an Ebola-affected area in the 21 days before illness onset No symptoms or risks identified at this time. ROS: 13:56 Eyes: Negative for injury, pain, redness, and discharge, ENT: Negative for injury, jr8 pain, and discharge, Neck: Negative for injury, pain, and swelling, Cardiovascular: Negative for chest pain, palpitations, and edema, Respiratory: Negative for shortness of breath, cough, wheezing, and pleuritic chest pain, Abdomen/GI: Negative for abdominal pain, nausea, vomiting, diarrhea, and constipation, Back: Negative for injury and pain, MS/Extremity: Negative for injury and deformity, Skin: Negative for injury, rash, and discoloration, Neuro: Negative for headache, weakness, numbness, tingling, and seizure. 13:56 Psych: Positive for depression, suicide gesture, suicidal ideation. Exam: 13:56 Eyes: Pupils equal round and reactive to light, extra-ocular motions intact. Lids and jr8 lashes normal. Conjunctiva and sclera are non-icteric and not injected. Cornea within normal limits. Periorbital areas with no swelling, redness, or edema. ENT: Nares patent. No nasal discharge, no septal abnormalities noted. Tympanic membranes are normal and external auditory canals are clear. Oropharynx with no redness, swelling, or masses, exudates, or evidence of obstruction, uvula midline. Mucous membranes moist. Neck: Trachea midline, no thyromegaly or masses palpated, and no cervical lymphadenopathy. Supple, full range of motion without nuchal rigidity, or vertebral point tenderness. No Meningismus. Cardiovascular: Regular rate and rhythm with a normal S1 and S2. No gallops, murmurs, or rubs. Normal PMI, no JVD. No pulse deficits. Respiratory: Lungs have equal breath sounds bilaterally, clear to auscultation and percussion. No rales, rhonchi or wheezes noted. No increased work of breathing, no retractions or nasal flaring. Abdomen/GI: Soft, non-tender, with normal bowel sounds. No distension or tympany. No guarding or rebound. No evidence of tenderness throughout. Back: No spinal tenderness. No costovertebral tenderness. Full range of motion. Skin: Warm, dry with normal turgor. Normal color with no rashes, no lesions, and no evidence of cellulitis. MS/ Extremity: Pulses equal, no cyanosis. Neurovascular intact. Full, normal range of motion. Neuro: Awake and alert, GCS 15, oriented to person, place, time, and situation. Cranial nerves II-XII grossly intact. Motor strength 5/5 in all extremities. Sensory grossly intact. Cerebellar exam normal. Normal gait. 13:56 Psych: Behavior/mood is cooperative, suicidal, depressed, Affect is flat, Oriented to person, place, time, Patient having thoughts of suicide. Plan for suicide is See HPI Judgement / Insight is impaired. Memory is normal. Delusions/hallucinations are not present. Vital Signs: 10:15 BP 130 / 86; Pulse 82; Resp 14; Temp 97.7; Pulse Ox 100% on R/A; Pain 0/10; sg 11:00 BP 133 / 94; Pulse 73 MON; Resp 20; Pulse Ox 100% on R/A; Pain 0/10; sg 12:04 BP 137 / 94; Pulse 66; Resp 19; Pulse Ox 100% ; jd2 13:02 BP 136 / 91; Pulse 77; Resp 23; Pulse Ox 100% ; jd2 13:20 BP 136 / 91; Pulse 78 MON; Resp 20 S; Temp 97.7; Pulse Ox 100% ; sg 14:32 BP 131 / 97; Pulse 80; Resp 17 S; Pulse Ox 100% ; Pain 0/10; sg 15:12 BP 137 / 98; Pulse 72; Resp 23; Pulse Ox 100% ; jd2 16:14 BP 110 / 74; Pulse 72; Resp 21; Pulse Ox 100% on R/A; jd2 17:15 BP 129 / 91; Pulse 76; Resp 20; Pulse Ox 100% on R/A; jd2 18:08 BP 122 / 77; Pulse 81; Resp 17; Pulse Ox 100% on R/A; jd2 11:00 Sinus Rhythm sg [place] Coma Score: 13:20 Eye Response: spontaneous(4). Verbal Response: oriented(5). Motor Response: obeys sg commands(6). Total: 15. MDM: 10:14 Patient medically screened. [facility] 13:48 Data reviewed: vital signs, nurses notes, lab test result(s), EKG. Data interpreted: jr8 Pulse oximetry: on room air is 100 %. Interpretation: normal. Counseling: I had a detailed discussion with the patient and/or guardian regarding: the historical points, exam findings, and any diagnostic results supporting the discharge/admit diagnosis, lab results, the need for further work-up and treatment in the hospital. ED course: Patient has minimal 12 hour observation time per Poison control with 4 hour Tylenol and Mag level. Will admit for observation with intent to transfer to [facility] for suicidal gesture . 13:56 Physician consultation: Marlon Damico MD was called at 13:59, was contacted at 13:59, jr8 regarding admission, to the ICU, consult, patient's condition, and will see patient in ED. 06/25 10:14 Order name: Acetaminophen; Complete Time: 11:42 [facility] 06/25 10:14 Order name: Basic Metabolic Panel; Complete Time: 11:42 [facility] 06/25 10:14 Order name: CBC with Diff; Complete Time: 11:16 [facility] 06/25 10:14 Order name: ETOH Level; Complete Time: 12:37 [facility] 06/25 10:14 Order name: Hepatic Function; Complete Time: 11:42 [facility] 06/25 10:14 Order name: PT-INR; Complete Time: 11:25 [facility] 06/25 10:14 Order name: Ptt, Activated; Complete Time: 11:25 [facility] 06/25 10:14 Order name: Salicylate; Complete Time: 11:30 [facility] 06/25 10:14 Order name: Urine Drug Screen; Complete Time: 11:30 [facility] 06/25 11:05 Order name: Urine Dipstick--Ancillary (enter results); Complete Time: 12:37 06/25 11:05 Order name: Urine --Ancillary (enter results); Complete Time: 12:37 06/25 11:35 Order name: Magnesium; Complete Time: 12:58 06/25 14:03 Order name: Acetaminophen; Complete Time: 15:17 06/25 15:48 Order name: Salicylate 06/25 10:14 Order name: EKG; Complete Time: 10:15 [facility] 06/25 10:14 Order name: EKG - Nurse/Tech; Complete Time: 10:24 [facility] 06/25 10:14 Order name: IV Saline Lock; Complete Time: 11:03 [facility] 06/25 10:14 Order name: Labs collected and sent; Complete Time: 11:03 [facility] 06/25 10:14 Order name: Urine Dipstick-Ancillary (obtain specimen); Complete Time: 11:03 [facility] 06/25 10:14 Order name: Gastric lavage; Complete Time: 10:37 [facility] 06/25 13:49 Order name: EKG - Nurse/Tech; Complete Time: 13:58 06/25 13:50 Order name: Diet Regular; Complete Time: 13:50 06/25 15:57 Order name: Salicylates Level; Complete Time: 16:05 EDMS Administered Medications: 14:25 Drug: Phenergan 6.25 mg Route: IVP; Site: right antecubital; sg 14:50 Follow up: Response: No adverse reaction; Nausea is decreased sg 15:37 Drug: Tylenol 1000 mg Route: PO; sg Disposition: 06/26 11:45 Co-signature as Attending Physician, Zoltan Forrester MD. Disposition: 06/25/18 13:51 Hospitalization ordered by Marlon Damico for Observation. Preliminary diagnosis are Suicide attempt, Suicidal ideations. - Bed requested for Intensive Care Unit. - Status is Observation. lp1 - Condition is Stable. - Problem is new. - Symptoms have improved. UTI on Admission? No Signatures: Dispatcher [employer] EDMS Alcira Valenzuela RN RN dw Teddy Narayanan RN RN sg Patricia Wilkins RN RN lp1 Melvin Brooks PA PA jr8 Zoltan Forrester MD MD Corrections: (The following items were deleted from the chart) 06/25 14:00 13:51 Hospitalization Ordered by Brayan Turner DO for Observation. Preliminary jr8 diagnosis is Suicide attempt; Suicidal ideations. Bed requested for Intensive Care Unit. Status is Observation. Condition is Stable. Problem is new. Symptoms have improved. UTI on Admission? No. jr8 18:37 14:00 06/25/2018 13:51 Hospitalization Ordered by Marlon Damico MD for Observation. dw Preliminary diagnosis is Suicide attempt; Suicidal ideations. Bed requested for Intensive Care Unit. Status is Observation. Condition is Stable. Problem is new. Symptoms have improved. UTI on Admission? No. jr8 19:56 18:37 06/25/2018 13:51 Hospitalization Ordered by Marlon Damico MD for Observation. lp1 Preliminary diagnosis is Suicide attempt; Suicidal ideations. Bed requested for Intensive Care Unit. Status is Observation. Condition is Stable. Problem is new. Symptoms have improved. UTI on Admission? No. dw
--- NOTE | 2018-06-25 13:52 | ER ---
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 Transition of care: patient was not received from another setting of care. Onset of symptoms was June 25, 2018. Risk Assessment: Do you want to hurt yourself or someone else? Patient reports no desire to harm self or others. Initial Sepsis Screen: Does the patient meet any 2 criteria? No. Patient's initial sepsis screen is negative. Does the patient have a suspected source of infection? No. Patient's initial sepsis screen is negative. Care prior to arrival: None. 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 - Social history:: Smoking status: Patient/guardian denies using tobacco. - Ebola Screening: : Patient negative for fever greater than or equal to 101.5 degrees Fahrenheit, and additional compatible Ebola Virus Disease symptoms Patient denies exposure to infectious person Patient denies travel to an Ebola-affected area in the 21 days before illness onset No symptoms or risks identified at this time. Screenin:13 Abuse screen: Denies threats or abuse. Denies injuries from another. Nutritional sg screening: No deficits noted. Tuberculosis screening: No symptoms or risk factors identified. Never had TB. Fall Risk None identified. Assessment: 10:00 General: Appears in no apparent distress. well groomed, well developed, well nourished, sg drowsy, responsive to verbal stimuli. Behavior is calm, quiet. Pain: Complains of pain in abdomen Quality of pain is described as aching. Neuro: Level of Consciousness is awake, alert, obeys commands, Oriented to person, place, time, Tile Decorator are equal bilaterally Moves all extremities. Gait is steady, Speech is normal, Facial symmetry appears normal. Cardiovascular: Heart tones S1 S2 present Patient's skin is warm and dry. Chest pain is denied. Respiratory: Airway is patent Respiratory effort is even, unlabored, Respiratory pattern is regular, symmetrical, Breath sounds are clear. GI: Abdomen is round non-distended, obese, Bowel sounds present X 4 quads. Reports nausea. : No signs and/or symptoms were reported regarding the genitourinary system. EENT: No deficits noted. Derm: Skin is intact, is healthy with good turgor, Skin is dry, Skin is normal, Skin temperature is warm. Musculoskeletal: No deficits noted. 10:35 Reassessment: Patient appears in no apparent distress at this time. orders received to sg perform Gastric Lavage to retrieve pill fragments. 10:41 Reassessment: assisted Teddy Narayanan RN with gastric lavage, small pill fragments found iw in emesis. 11:12 Reassessment: Teresa with Poison control [facility], reports , monitor for " OILER BANDER depression, Seizure, Hallucinations, Dizzyness, Hypotension,urinary retention, slurred speech, EKG changes specifically prolongation of the QTC, anticipate hypomagnesemia, and close I/O, repeat acetaminophen/salicilate levels at 1400.". 11:20 Reassessment: Patient appears in no apparent distress at this time. Patient is alert, sg oriented x 3, equal unlabored respirations, skin warm/dry/pink. pt continues to be drowsy at this time, reports feeling sleepy. 13:20 Reassessment: Patient appears in no apparent distress at this time. Patient is alert, sg oriented x 3, equal unlabored respirations, skin warm/dry/pink. pt using my cellphone to contact her family at this time, pt VS remain stable, will continue to monitor Patient denies pain at this time. 14:30 Reassessment: Patient appears in no apparent distress at this time. Patient is alert, sg oriented x 3, equal unlabored respirations, skin warm/dry/pink. 16:31 Reassessment: pt belongings given to security, a bag consisting of the pts medications sg and car keys as well as her family fitness plascencia ring card. 17:30 Reassessment: Patient appears in no apparent distress at this time. Patient and/or jl7 family updated on plan of care and expected duration. Pain level reassessed. Patient is alert, oriented x 3, equal unlabored respirations, skin warm/dry/pink. 18:19 Reassessment: Berta King, reports pt sister. Informed to please contact her sg prior to pt being discharged to home at number [phone]. Psych: 10:15 Subjective: Patient's mood is sad, Delusions are denied, Hallucinations are denied sg Having thoughts of suicide. Plan for suicide is overdose on pills attempt made. Objective: Patient is cooperative, using poor eye contact, Speech is normal, Affect is flat. Interventions: Removed personal items and placed in bag. Patient placed in hospital gown. Suicide Risk Assessment: Sad Person Scale: Sex of patient: Female: Score 0 points. Age of patient: Score 0 point if patient falls outside of specified age parameters. Depression: Score 1 point if signs of depression are present. Previous Attempt: Score 0 point if patient has not previously attempted suicide. Substance Abuse: Score 0 point if patient does not abuse alcohol or drugs. Social Support: Score 1 point if social support is lacking and/or unavailable. Organized Plan: Score 1 point if patient had a plan in place. Relationship: Score 1 point if patient is , , , or for a single male TOTAL POINTS: If total points are 3-4, proposed clinical action is close follow-up/consider hospitalization. Safety Checks: Personal items have been removed. Door is open. Visitors are present. Pt denies substance abuse. Commitment: Patient will be a voluntary commitment. Vital Signs: 10:15 BP 130 / 86; Pulse 82; Resp 14; Temp 97.7; Pulse Ox 100% on R/A; Pain 0/10; sg 11:00 BP 133 / 94; Pulse 73 MON; Resp 20; Pulse Ox 100% on R/A; Pain 0/10; sg 12:04 BP 137 / 94; Pulse 66; Resp 19; Pulse Ox 100% ; jd2 13:02 BP 136 / 91; Pulse 77; Resp 23; Pulse Ox 100% ; jd2 13:20 BP 136 / 91; Pulse 78 MON; Resp 20 S; Temp 97.7; Pulse Ox 100% ; sg 14:32 BP 131 / 97; Pulse 80; Resp 17 S; Pulse Ox 100% ; Pain 0/10; sg 15:12 BP 137 / 98; Pulse 72; Resp 23; Pulse Ox 100% ; jd2 16:14 BP 110 / 74; Pulse 72; Resp 21; Pulse Ox 100% on R/A; jd2 17:15 BP 129 / 91; Pulse 76; Resp 20; Pulse Ox 100% on R/A; jd2 18:08 BP 122 / 77; Pulse 81; Resp 17; Pulse Ox 100% on R/A; jd2 11:00 Sinus Rhythm sg [place] Coma Score: 13:20 Eye Response: spontaneous(4). Verbal Response: oriented(5). Motor Response: obeys sg commands(6). Total: 15. ED Course: 10:00 Arm band placed on. EKG completed in triage. Results shown to MD. sg 10:10 Patient has correct armband on for positive identification. Placed in gown. Bed in low sg position. Side rails up X2. hall monitor on. Pulse ox on. NIBP on. Head of bed elevated. 10:13 Patient arrived in ED. jr8 10:13 [facility]. jr8 10:13 Zoltan Forrester MD is Attending Physician. jr8 10:23 EKG done, by ED staff, reviewed by Melvin CONNER. jb1 10:38 Gastric lavage via closed lavage system with tap water -1 liter returned stomach sg contents, pill fragments, Patient tolerated well. 10:55 Teddy Narayanan, CHERELLE is Primary Nurse. sg 10:58 Triage completed. sg 11:00 Initial lab(s) drawn, by me, sent to lab. Inserted saline lock: 20 gauge in right sg antecubital area, using aseptic technique. Blood collected. 11:04 Straight cath inserted, using sterile technique, 16 Fr. Specimen obtained. Returned jl7 clear yellow urine. Patient tolerated well. 11:15 Safety checks: Items removed: yes. Door open/sign placed on door: yes. Family/friend oe present: no. Sitter present: Yes. 11:44 Safety checks: Items removed: yes. Door open/sign placed on door: yes. Sitter present: jd2 Yes. 12:00 Safety checks: Items removed: yes. Door open/sign placed on door: yes. Sitter present: jd2 Yes. 12:15 Safety checks: Items removed: yes. Door open/sign placed on door: yes. Sitter present: jd2 Yes. 12:30 Safety checks: Items removed: yes. Door open/sign placed on door: yes. Sitter present: jd2 Yes. 12:45 Safety checks: Items removed: yes. Door open/sign placed on door: yes. Sitter present: jd2 Yes. 13:00 Safety checks: Items removed: yes. Door open/sign placed on door: yes. Sitter present: jd2 Yes. 13:15 Safety checks: Items removed: yes. Door open/sign placed on door: Sitter present: Yes. jd2 13:30 Safety checks: Items removed: yes. Door open/sign placed on door: yes. Sitter present: jd2 Yes. 13:50 Brayan Turner DO is Hospitalizing Provider. jr8 13:58 EKG done, by ED staff, reviewed by Zoltan Forrester MD. jb1 13:59 Hospitalizing Provider role handed off by Brayan Turner DO jr8 13:59 Marlon Damico MD is Hospitalizing Provider. jr8 14:00 Safety checks: Items removed: yes. Door open/sign placed on door: yes. Family/friend jb1 present: yes. Sitter present: Yes. 14:15 Safety checks: Items removed: yes. Door open/sign placed on door: yes. Family/friend jb1 present: no. Sitter present: Yes. 14:30 Safety checks: Items removed: yes. Door open/sign placed on door: yes. Family/friend jd2 present: no. Sitter present: Yes. 14:45 Safety checks: Items removed: yes. Door open/sign placed on door: yes. Family/friend jd2 present: no. Sitter present: Yes. 15:00 Safety checks: Items removed: yes. Door open/sign placed on door: yes. Family/friend jd2 present: no. Sitter present: Yes. 15:15 Safety checks: Items removed: yes. Door open/sign placed on door: yes. Family/friend jd2 present: no. Sitter present: Yes. 15:30 Safety checks: Items removed: yes. Door open/sign placed on door: yes. Family/friend jd2 present: no. Sitter present: Yes. 15:45 Safety checks: Items removed: yes. Door open/sign placed on door: yes. Family/friend jd2 present: no. Sitter present: Yes. 16:00 Safety checks: Items removed: yes. Door open/sign placed on door: yes. Family/friend jd2 present: no. Sitter present: Yes. 16:15 Safety checks: Items removed: yes. Door open/sign placed on door: yes. Family/friend jd2 present: no. Sitter present: Yes. 16:30 Safety checks: Items removed: yes. Door open/sign placed on door: yes. Family/friend jd2 present: yes. Sitter present: Yes. 16:30 Safety checks: Items removed: yes. Door open/sign placed on door: yes. Family/friend jd2 present: no. Sitter present: Yes. 16:45 Safety checks: Items removed: yes. Door open/sign placed on door: yes. Family/friend jd2 present: no. Sitter present: Yes. 17:00 Safety checks: Items removed: yes. Door open/sign placed on door: yes. Family/friend jd2 present: no. Sitter present: Yes. 17:15 Patient admitted, IV remains in place. intact, No redness/swelling at site. sg 17:15 Safety checks: Items removed: yes. Door open/sign placed on door: yes. Family/friend jd2 present: no. Sitter present: Yes. 17:30 Vinod Nolan MD is Private Physician. sg 17:30 No provider procedures requiring assistance completed. sg 17:30 Safety checks: Items removed: yes. Door open/sign placed on door: yes. Family/friend jd2 present: no. Sitter present: Yes. 17:45 Safety checks: Items removed: yes. Door open/sign placed on door: yes. Family/friend jd2 present: no. Sitter present: Yes. 18:00 Safety checks: Items removed: yes. Door open/sign placed on door: yes. Family/friend jd2 present: no. Sitter present: Yes. 18:15 Safety checks: Items removed: yes. Door open/sign placed on door: yes. Family/friend jd2 present: no. Sitter present: Yes. 18:30 Safety checks: Items removed: yes. Door open/sign placed on door: yes. Family/friend jd2 present: no. Sitter present: Yes. 18:45 Safety checks: Items removed: yes. Door open/sign placed on door: yes. Family/friend jd2 present: no. Sitter present: Yes. 19:00 Safety checks: Items removed: yes. Door open/sign placed on door: yes. Family/friend oe present: no. Sitter present: Yes. 19:15 Safety checks: Items removed: yes. Door open/sign placed on door: yes. Family/friend oe present: no. Sitter present: Yes. 19:30 Safety checks: Items removed: yes. Door open/sign placed on door: yes. Family/friend oe present: no. Sitter present: Yes. 19:45 Safety checks: Items removed: yes. Door open/sign placed on door: yes. Family/friend oe present: no. Sitter present: Yes. Administered Medications: 14:25 Drug: Phenergan 6.25 mg Route: IVP; Site: right antecubital; sg 14:50 Follow up: Response: No adverse reaction; Nausea is decreased sg 15:37 Drug: Tylenol 1000 mg Route: PO; sg Outcome: 13:51 Decision to Hospitalize by Provider. jr8 17:15 Patient is placed in psych hold sg 17:15 Admitted to ER Hold. Please see [facility] for further documentation. sg 17:15 Condition: stable sg 19:56 Patient left the ED. lp1 Signatures: Jarad Rebollar1 Teddy Narayanan RN CHERELLE sg Daphne Vigil RN RN iw Pena, Laura, RN RN lp1 Melvin Brooks PA PA jr8 Ree Loyd jd2 Miguel Angel Luna Jahala, RN RN jl7 Corrections: (The following items were deleted from the chart) 16:31 11:12 Reassessment: Teresa with Poison control [facility], reports case number [id number], monitor for " OILER BANDER depression, Seizure, Hallucinations, Dizzyness, Hypotension,urinary retention, slurred speech, EKG changes specifically prolongation of the QTC, anticipate hypomagnesemia, and close I/O, repeat acetaminophen/salicilate levels at 1400." 16:33 16:31 Reassessment: pt belongings given to security, a bag consisting of the pts sg medications and care keys as well as her family fitness pl[employer] ring card. sg
[2018-06-25] MEDS ORDERED: MAGNESIUM SULFATE 1 gm IVPB 1 GM/100 ML BAG IV ONE (13:58)
[2018-06-25] MEDS ORDERED: PROMETHAZINE 25 MG/ML VIAL ONE (14:30)
[2018-06-25] MEDS ORDERED: ACETAMINOPHEN 500 MG TAB ONE (15:35)
[2018-06-25] MEDS: NA CHLORIDE 0.9% 1,000 ML IV SCH (17:15)
--- NOTE | 2018-06-25 17:31 | P.HP ---
Certification for Inpatient Patient admitted to: Observation Practitioner: I am a practitioner with admitting privileges, knowledge of patient current condition, hospital course, and medical plan of care. Services: Services provided to patient in accordance with Admission requirements found in Title 42 Section 412.3 of the Code of Federal Regulations Patient History Date of Service: 06/25/18 Reason for admission: Suicide attempt History of Present Illness: This is a 43-year-old female with history depressions, anxiety and bipolar disease admitted for suicidal attempt. Per patient, she ingested 40 plus Ambien and Belsamra pills this morning because she was in a bad place. She states that she did not sleep overnight and was having thoughts running around. She recently lost her daughter and had a recent break-up with her partner/ . In the ER, she was pumped and lots of fragments of the pills were removed. Poison control recommended 24 observation. At the time of my exam, patient was tearful and stated that she did not want to be here anymore. She remained hemodynamically stable Allergies codeine Allergy (Verified 05/30/18 10:16) Nausea/Vomiting ibuprofen Allergy (Verified 06/25/18 17:31) Hives/Rash Home Medications: Acetaminophen [Pain Relief] 500 mg PO Q6HR PRN 01/02/18 Diphenhydramine [Benadryl Tab/Cap] 25 mg PO Q6HP PRN 01/02/18 Norgestrel-Ethinyl Estradiol [Elinest-28 Tablet] 1 each PO DAILY 05/30/18 - Past Medical/Surgical History Diabetic: No -: hernia repair -: lumpectomy from back - Family History Mother -: Cancer - Social History Alcohol use: No CD- Drugs: No Caffeine use: Yes Review of Systems is unable to be obtained (Patient is not cooperative) Physical Examination - Physical Exam General: Alert, Moderate distress, Other (Tearful with conversation.) HEENT: Atraumatic, PERRLA, Mucous membr. moist/pink, EOMI, Sclerae nonicteric Neck: Supple, 2+ carotid pulse no bruit, No LAD, Without JVD or thyroid abnormality Respiratory: Clear to auscultation bilaterally, Normal air movement Cardiovascular: Regular rate/rhythm, Normal S1 S2 Gastrointestinal: Normal bowel sounds, No tenderness Musculoskeletal: No tenderness Integumentary: No rashes Neurological: Normal speech, Normal strength at 5/5 x4 extr, Normal tone, Abnormal affect - Studies Laboratory Data (last 24 hrs) 06/25/18 11:35: Magnesium 2.2 06/25/18 10:45: PT 12.4, INR 1.05, APTT 32.5 06/25/18 10:45: WBC 5.0, Hgb 11.8 L, Hct 35.1 L, Plt Count 351 06/25/18 10:45: Sodium 141, Potassium 3.8, BUN 11, Creatinine 0.90, Glucose 109 H, Total Bilirubin 0.3, AST 12 L, ALT 20, Alkaline Phosphatase 107 Assessment and Plan - Plan This is a 43-year-old female with Suicide attempt: Admit patient to ICU with 1 on 1 Monitor overnight for hemodynamic stability. Monitor labs in the a.m. Once medically stable tomorrow, will require a [facility] eval for inpatient psych as I do not feel patient is a safe discharge home. She lives alone, has attempted suicide, has the means and has recently lost a daughter, she has also had a recent break-up with her partner. History of bipolar History of depression Hold medications for now, will be reevaluated morning DVT prophylaxis: Lovenox GI prophylaxis: Not need Diet: Regular Disposition: Admit to ICU with 1 on 1. 24 arms. Will require and MR eval - Advance Directives Does patient have a Living Will: No Does patient have a Durable POA for Healthcare: No
[2018-06-25] MEDS ORDERED: NA CHLORIDE 0.9% 1,000 ML ONE (17:55)
[2018-06-25] MEDS ORDERED: ENOXAPARIN 40 MG/0.4 ML SQ ONE (17:56)
[2018-06-25] MEDS ORDERED: ENOXAPARIN 40 MG/0.4 ML SQ SCH (18:00)
[2018-06-25] MEDS: INFLUENZA VACCINE (for 3y+) 0.5 ML DOSE IMVAC ONE (18:00)
[2018-06-25 20:35] VITALS: BMI 42.2
[2018-06-25] MEDS ORDERED: QUETIAPINE 100MG TAB PO SCH (21:00)
[2018-06-25] MEDS ORDERED: ONDANSETRON 4 MG/2 ML VIAL IV PRN (21:46)
[2018-06-26 00:01] VITALS: O2SAT 100
[2018-06-26] MEDS: ACETAMINOPHEN 500 MG TAB PO PRN ×2 (00:13→11:07)
[2018-06-26] MEDS: NA CHLORIDE 0.9% 1,000 ML IV SCH (03:15)
[2018-06-26 06:01] LABS: Absolute Monocytes 0.3 K/uL (0.1-1.3); Absolute Neutrophil 1.9 K/uL (1.8-8.0); Basophils % 0.4 % (0-1.3); Eosinophils % 5.2 % (0-4.4); Hematocrit 28.1 % (36.0-45.0); Lymphocytes % 45.1 % (15.3-44.8); MCH 29.1 pg (27.0-35.0); MPV 8.8 fL (7.6-11.3); Monocytes % 7.2 % (3.3-12.3)
[2018-06-26 06:23] LABS: ALT/SGPT 14 U/L (12-78); AST/SGOT 13 U/L (15-37); Alkaline Phosphatase 85 U/L (45-117); BUN Blood Urea Nitrogen 11 mg/dL (7-18); Bicarbonate 28 mmol/L (21-32); Bilirubin Total 0.2 mg/dL (0.2-1.0); Glucose Level 110 mg/dL (74-106); Phosphorus 3.8 mg/dL (2.5-4.9); Potassium 3.6 mmol/L (3.5-5.1); Protein, Total 6.7 g/dL (6.4-8.2); Sodium Level 143 mmol/L (136-145)
[2018-06-26] MEDS: INFLUENZA VACCINE (for 3y+) 0.5 ML DOSE IMVAC ONE (06:24)
[2018-06-26] MEDS ORDERED: POTASSIUM CL SA 10 MEQ TAB PO ONE (06:27)
[2018-06-26 14:32] VITALS: BP 132/94; TEMP 98.8
--- NOTE | 2018-06-26 15:53 | P.SSS ---
Patient History Date of Service: 06/26/18 Reason for admission: Suicide attempt History of Present Illness: This is a 43-year-old female with history depressions, anxiety and bipolar disease admitted for suicidal attempt. Per patient, she ingested 40 plus Ambien and Belsamra pills this morning because she was in a bad place. She states that she did not sleep overnight and was having thoughts running around. She recently lost her daughter and had a recent break-up with her partner/ . In the ER, she was pumped and lots of fragments of the pills were removed. Poison control recommended 24 observation. At the time of my exam, patient was tearful and stated that she did not want to be here anymore. She remained hemodynamically stable Allergies codeine Allergy (Verified 05/30/18 10:16) Nausea/Vomiting ibuprofen Allergy (Verified 06/25/18 17:31) Hives/Rash Home Medications: Quetiapine [Seroquel] 300 mg PO BEDTIME 06/25/18 - Past Medical/Surgical History Diabetic: No -: depression -: anxiety -: bipolar -: insomnia -: hernia repair -: lumpectomy from back -: hysterectomy - Family History Mother -: Cancer - Social History Smoking Status: Never smoker Alcohol use: No CD- Drugs: No Caffeine use: Yes Place of Residence: Home Review of Systems As noted Other: Abnormal affect, tearful/crying Physical Examination - Vital Signs Temperature: 98.8 F Blood Pressure: 132/94 Pulse: 79 Respirations: 22 Pulse Ox (%): 100 - Physical Exam General: Alert, Oriented x3, Other (Tearful/crying on conversation) HEENT: Atraumatic, PERRLA, Mucous membr. moist/pink, EOMI, Sclerae nonicteric Neck: Supple, 2+ carotid pulse no bruit, No LAD, Without JVD or thyroid abnormality Respiratory: Clear to auscultation bilaterally, Normal air movement Cardiovascular: Regular rate/rhythm, Normal S1 S2 Gastrointestinal: Normal bowel sounds, No tenderness Musculoskeletal: No tenderness Integumentary: No rashes Neurological: Normal strength at 5/5 x4 extr, Normal tone, Normal affect Treatment Summary: Patient was admitted to ICU for 1 on 1 observation as she was admitted for suicidal attempt. Per patient, she took multiple pills of Ambien, will summarize, quetiapine. In the ER, she her stomach was pumped and pill fragments were found. Medically and hemodynamically, patient remained stable overnight. She was evaluated by [facility] there was deemed that she would not be safe discharge home and would benefit from inpatient psychiatric evaluation. I agree with him [facility], I do not think she would have been been a safe discharge home. Patient transferred to inpatient psych facility in the medically stable manner until the was an involuntary transfer.. - Disposition Disposition: TRANSFR TO OTHER-PSY/CD/REHAB Condition: GOOD Diet: Regular Activity: Ad indigo Time Spent Managing Pts Care (In Minutes): 45
--- NOTE | 2018-06-27 07:07 | EKG ---
Test Date: 2018-06-25 Test Time: 13:52:45 External Grinder: KELLY MEASUREMENT RESULTS: Intervals: Rate: 80 MT: 168 QRSD: 80 QT: 388 QTc: 447 [place]: P: 31 MT: 168 QRS: -12 T: 7 INTERPRETIVE STATEMENTS: Normal sinus rhythm Normal ECG Compared to ECG 06/25/2018 10:22:28 No significant changes Electronically Signed On 06-27-18 07:03:56 REPAIR WELDER by Vahe Gonsales
--- NOTE | 2018-06-27 07:07 | EKG ---
Test Date: 2018-06-25 Test Time: 10:22:28 Director Of Education And Training: KELLY MEASUREMENT RESULTS: Intervals: Rate: 84 MI: 164 QRSD: 78 QT: 370 QTc: 437 [place]: P: 24 MI: 164 QRS: -16 T: 6 INTERPRETIVE STATEMENTS: Normal sinus rhythm Normal ECG Compared to ECG 03/30/2018 12:21:32 No significant changes Electronically Signed On 06-27-18 07:04:05 VISUAL EDUCATION TEACHER by Vahe Gonsales
== END 2018-06-26 14:10 ==
LOC: ER 10:05 → ERHOLD 15:01 → 3RD-ICU 19:54
PROVIDERS: ADMIT Family Medicine; ATTEND Family Medicine
DX: T42.6X2A Poisoning by other antiepileptic and sedative-hypnotic drugs, intentional self-harm, initial encounter (principal); F41.8 Other specified anxiety disorders; F31.9 Bipolar disorder, unspecified; Y92.009 Unspecified place in unspecified non-institutional (private) residence as the place of occurrence of the external cause; Z23 Encounter for immunization
CPT/HCPCS: 36415; 51702; 80048; 80053; 80076; 80307; 80320; 80329; 81003; 81025; 83735; 84100; 85025; 85610; 85730; 93005; 96374; 99285; G0008; G0378; J1650; J2405; J2550; J3475; J7030; Q2035

== ENCOUNTER 2018-07-28 10:51 | Emergency (ER) | payer BC, SELFPAY ==
--- NOTE | 2018-07-28 12:03 | ER ---
Nurse's Notes [facility] Name: Anjana Stevenson Age: 43 yrs Sex: Female : 1975 Arrival Date: 07/28/2018 Time: 10:54 Bed 11 Private MD: Vinod Nolan Diagnosis: Acute streptococcal tonsillitis, unspecified Presentation: 07/28 11:02 Presenting complaint: Patient states: i have sore throat that started 2 days ago; hj reports fever of 102; tylenol taken last night;. Transition of care: patient was not received from another setting of care. Onset of symptoms was July 28, 2018. Risk Assessment: Do you want to hurt yourself or someone else? Patient reports no desire to harm self or others. Initial Sepsis Screen: Does the patient meet any 2 criteria? No. Patient's initial sepsis screen is negative. Does the patient have a suspected source of infection? No. Patient's initial sepsis screen is negative. Care prior to arrival: None. 11:02 Method Of Arrival: Ambulatory 11:02 Acuity: TAWANDA 4 Triage Assessment: 11:04 General: Appears in no apparent distress. uncomfortable, Behavior is calm, cooperative, hj appropriate for age. Pain: Complains of pain in throat Pain currently is 10 out of 10 on a pain scale. EENT: Reports pain in throat. 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 - Social history:: Smoking status: Patient/guardian denies using tobacco, Patient/guardian denies using alcohol. - Ebola Screening: : Patient negative for fever greater than or equal to 101.5 degrees Fahrenheit, and additional compatible Ebola Virus Disease symptoms Patient denies exposure to infectious person Patient denies travel to an Ebola-affected area in the 21 days before illness onset. Screenin:04 Abuse screen: Denies threats or abuse. Denies injuries from another. Nutritional hj screening: No deficits noted. Tuberculosis screening: No symptoms or risk factors identified. Fall Risk None identified. Assessment: 11:05 Respiratory: Airway is patent Respiratory effort is even, unlabored, Respiratory hj pattern is regular, symmetrical, Breath sounds are clear. EENT: Throat. Vital Signs: 11:05 BP 131 / 49; Pulse 85; Resp 18; Temp 98.9(O); Pulse Ox 100% on R/A; Weight 99.79 kg; hj Height 5 ft. 6 in. (167.64 cm); Pain 10; 11:05 Body Mass Index 35.51 (99.79 kg, 167.64 cm) hj ED Course: 10:54 Patient arrived in ED. mr 10:55 None, None is Private Physician. mr 10:55 Vinod Nolan MD is Private Physician. mr 11:03 Triage completed. hj 11:05 Arm band placed on left wrist. hj 11:05 Patient has correct armband on for positive identification. Bed in low position. Call hj light in reach. 11:19 Strep Sent. hj 11:19 Flu Sent. hj 11:36 Chele Paredes RN is Primary Nurse. hj 11:39 Josh Crenshaw PA is PHCP. cp 11:39 Pierce De Leon MD is Attending Physician. cp 12:11 No provider procedures requiring assistance completed. Patient did not have IV access hj during this emergency room visit. Administered Medications: 11:58 Drug: Decadron 10 mg Route: IM; Site: right gluteus; hj 12:10 Follow up: Response: No adverse reaction hj 11:59 Drug: Rocephin (cefTRIAXone) 1 grams Route: IM; Site: left gluteus; hj 12:10 Follow up: Response: No adverse reaction hj Outcome: 12:02 Discharge ordered by MD. cp 12:11 Discharged to home ambulatory. hj 12:11 Condition: stable 12:11 Discharge instructions given to patient, Instructed on discharge instructions, follow up and referral plans. medication usage, Demonstrated understanding of instructions, follow-up care, medications, Prescriptions given X 1. 12:11 Patient left the ED. hj Signatures: Mary Jane Jones mr Chele Paredes RN RN hj Josh Crenshaw PA PA cp Corrections: (The following items were deleted from the chart) 11:09 11:05 Pulse 85bpm; Resp 18bpm; Pulse Ox 100% RA; Temp 98.9F Oral; 99.79 kg; Height 5 hj ft. 6 in.; BMI: 35.5; Pain 10; hj
--- NOTE | 2018-07-28 12:03 | EDPHYS ---
Physician Documentation [facility] Name: Anjana Stevenson Age: 43 yrs Sex: Female : 1975 Arrival Date: 07/28/2018 Time: 10:54 Bed 11 Private MD: Vinod Nolan ED Physician Pierce De Leon HPI: 07/28 11:53 This 43 yrs old Black Female presents to ER via Ambulatory with complaints of Fever, cp Sore Throat. 11:53 The patient reports fever, that was measured at 102 degrees Fahrenheit. Onset: The cp symptoms/episode began/occurred 2 day(s) ago. Associated signs and symptoms: Pertinent positives: earache, sore throat, Pertinent negatives: cough, diarrhea, skin rash, vomiting. Severity of symptoms: in the emergency department the symptoms are unchanged despite home interventions. 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 - Social history:: Smoking status: Patient/guardian denies using tobacco, Patient/guardian denies using alcohol. - Ebola Screening: : Patient negative for fever greater than or equal to 101.5 degrees Fahrenheit, and additional compatible Ebola Virus Disease symptoms Patient denies exposure to infectious person Patient denies travel to an Ebola-affected area in the 21 days before illness onset. ROS: 11:55 Eyes: Negative for injury, pain, redness, and discharge. cp 11:55 Constitutional: Negative for body aches, chills, fever, poor PO intake. 11:55 ENT: Positive for ear pain, hoarseness, sore throat, Negative for drainage from ear(s), difficulty handling secretions. 11:55 Cardiovascular: Negative for chest pain. 11:55 Respiratory: Negative for cough, shortness of breath, wheezing. 11:55 Abdomen/GI: Negative for abdominal pain, vomiting, diarrhea, constipation, anorexia. 11:55 Skin: Negative for cellulitis, rash. 11:55 Neuro: Negative for altered mental status, headache. 11:55 All other systems are negative. Exam: 11:58 Head/Face: Normocephalic, atraumatic. cp 11:58 Constitutional: The patient appears in no acute distress, alert, awake, non-toxic, well developed, well nourished. 11:58 Eyes: Periorbital structures: appear normal, Conjunctiva: normal, no exudate, no injection, Sclera: no appreciated abnormality, Lids and lashes: appear normal, bilaterally. 11:58 ENT: External ear(s): are unremarkable, Ear canal(s): are normal, clear, TM's: bulging, is not appreciated, bilaterally, dullness, bilaterally, erythema, is not appreciated, bilaterally, Nose: is normal, Mouth: Lips: moist, Oral mucosa: moist, Tongue: is normal, Posterior pharynx: Airway: no evidence of obstruction, patent, Tonsils: bilaterally enlarged, with erythema, Uvula: midline, erythema, that is moderate, exudate, is not appreciated, Voice: is hoarse. 11:58 Neck: ROM/movement: is normal, is supple, no range of motions limitations, no meningismus, no nuchal rigidity. 11:58 Chest/axilla: Inspection: normal. 11:58 Cardiovascular: Rate: normal, Rhythm: regular. 11:58 Respiratory: the patient does not display signs of respiratory distress, Respirations: normal, no use of accessory muscles, no retractions, no splinting, no tachypnea, labored breathing, is not present, Breath sounds: are clear throughout, no decreased breath sounds, no stridor, no wheezing. 11:58 Abdomen/GI: Exam negative for discomfort, distension, guarding, Inspection: abdomen appears normal. 11:58 Skin: cellulitis, is not appreciated, no rash present. Vital Signs: 11:05 BP 131 / 49; Pulse 85; Resp 18; Temp 98.9(O); Pulse Ox 100% on R/A; Weight 99.79 kg; hj Height 5 ft. 6 in. (167.64 cm); Pain 10/10; 11:05 Body Mass Index 35.51 (99.79 kg, 167.64 cm) MDM: 11:39 Patient medically screened. cp 12:01 Differential diagnosis: URI, pneumonia strep throat, tonsillar abscess, otitis media. cp 12:01 Data reviewed: vital signs, nurses notes, lab test result(s), and as a result, I will cp discharge patient. 12:01 Counseling: I had a detailed discussion with the patient and/or guardian regarding: the cp historical points, exam findings, and any diagnostic results supporting the discharge/admit diagnosis, lab results, to return to the emergency department if symptoms worsen or persist or if there are any questions or concerns that arise at home. 07/28 11:07 Order name: Flu; Complete Time: 11:50 hj 07/28 11:07 Order name: Strep; Complete Time: 11:50 hj Administered Medications: 11:58 Drug: Decadron 10 mg Route: IM; Site: right gluteus; hj 12:10 Follow up: Response: No adverse reaction hj 11:59 Drug: Rocephin (cefTRIAXone) 1 grams Route: IM; Site: left gluteus; hj 12:10 Follow up: Response: No adverse reaction hj Disposition: 13:22 Co-signature as Attending Physician, Pierce De Leon MD I agree with the assessment and kdr plan of care. Disposition: 07/28/18 12:02 Discharged to Home. Impression: Acute streptococcal tonsillitis, unspecified. - Condition is Stable. - Discharge Instructions: Strep Throat, Tonsillitis. - Prescriptions for Augmentin 875- 125 mg Oral Tablet - take 1 tablet by ORAL route every 12 hours for 10 days; 20 tablet. - Work release form, Medication Reconciliation Form, Thank You Letter, Antibiotic Education, Prescription Opioid Use form. - Follow up: Emergency Department; When: As needed; Reason: Worsening of condition. - Problem is new. - Symptoms have improved. Signatures: Dispatcher [employer] EDND Pierce De Leon MD MD [facility] Chele Paredes RN RN Josh Gallegos PA PA cp Corrections: (The following items were deleted from the chart) 12: 12:02 07/28/2018 12:02 Discharged to Home. Impression: Acute streptococcal tonsillitis, hj unspecified. Condition is Stable. Forms are Medication Reconciliation Form, Thank You Letter, Antibiotic Education, Prescription Opioid Use. Follow up: Emergency Department; When: As needed; Reason: Worsening of condition. Problem is new. Symptoms have improved. cp
[2018-07-28] MEDS ORDERED: DEXAMETHASONE 10 MG/ML VIAL ONE (12:11)
[2018-07-28] MEDS ORDERED: LIDOCAINE 1% MPF 2 ML AMPULE ONE (12:11)
[2018-07-28] MEDS ORDERED: CEFTRIAXONE 1000 MG/VIAL ONE (12:11)
[2018-07-28 12:16] VITALS: BP 131/49; TEMP 98.9; O2SAT 100
== END 2018-07-28 12:11 | disposition home or self-care (01) ==
LOC: ER 10:51
DX: J03.00 Acute streptococcal tonsillitis, unspecified (principal); F31.9 Bipolar disorder, unspecified; Z88.5 Allergy status to narcotic agent; Z88.6 Allergy status to analgesic agent
CPT/HCPCS: 87081; 87804; 96372; 99283; J1100; J2001

== ENCOUNTER 2018-08-13 14:07 | Emergency (ER) | payer SELFPAY ==
[2018-08-13] MEDS ORDERED: ACETAMINOPHEN 500 MG TAB ONE (16:28)
--- NOTE | 2018-08-13 17:18 | RAD REPORT ---
EXAM DESCRIPTION: CT - [id number] - 08/13/2018 5:10 pm CLINICAL HISTORY: Fall, head and neck injury, occipital headache COMPARISON: CT head and cervical March 2015 TECHNIQUE: Axial 5 mm thick images of the head were obtained. Axial 2 mm thick images of the cervic al spine were obtained with sagittal and coronal reconstruction images generated and reviewed. All CT scans are performed using dose optimization technique as appropriate and may include automated exposure control or mA/KV adjustment according to patient size. FINDINGS: No intracranial hemorrhage, mass, edema or acute intracranial finding. No suspicion for ac port gamble infarction. No extra-axial fluid collections. Mastoid air cells and paranasal sinuses are clear. No globe or orbit abnormality seen. Cervical body height and alignment are normal. No disk space narrowing. No fracture or acute bony abn ormality. No paraspinal mass or hematoma. IMPRESSION: Negative CT head examination for acute or significant finding. Negative CT cervical spine examination for acute or significant finding. No significant change from comparison.
--- NOTE | 2018-08-13 17:22 | ER ---
Nurse's Notes [facility] Name: Anjana Stevenson Age: 43 yrs Sex: Female : 1975 Arrival Date: 08/13/2018 Time: 14:11 Bed 18 Private MD: Vinod Nolan Diagnosis: Postconcussional syndrome Presentation: 08/13 14:19 Presenting complaint: Patient states: she was going down stairs from moving boxes and sv fell down 4 steps and hit the back of her head. Now reports occipital headache, neck, mid back pain, nausea. Transition of care: patient was not received from another setting of care. Onset of symptoms was August 12, 2018. Care prior to arrival: None. 14:19 Method Of Arrival: Ambulatory sv 14:19 Acuity: TAWANDA 3 sv 17:33 Risk Assessment: Do you want to hurt yourself or someone else? Patient reports no ss desire to harm self or others. Initial Sepsis Screen: Does the patient meet any 2 criteria? No. Patient's initial sepsis screen is negative. Does the patient have a suspected source of infection? No. Patient's initial sepsis screen is negative. Triage Assessment: 14:21 General: Appears in no apparent distress. uncomfortable, Behavior is calm, cooperative, sv appropriate for age. Pain: Complains of pain in scalp Pain currently is 8 out of 10 on a pain scale. Neuro: Level of Consciousness is awake, alert, obeys commands, Oriented to person, place, time, situation, Moves all extremities. Full function Gait is steady, Speech is normal, Reports headache occipital area. Respiratory: Respiratory effort is even, unlabored, Respiratory pattern is regular, symmetrical. 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 - Social history:: Smoking status: Patient/guardian denies using tobacco. - Ebola Screening: : No symptoms or risks identified at this time. Screenin:00 Abuse screen: Denies threats or abuse. Denies injuries from another. Nutritional ss screening: No deficits noted. Tuberculosis screening: No symptoms or risk factors identified. Never had TB. Fall Risk None identified. Assessment: 16:00 General: Appears in no apparent distress. comfortable, Behavior is calm, cooperative, ss Denies fever, feeling ill, fatigue, chills. Pain: Complains of pain in right trapezius and left trapezius and right mid cervical area and left mid cervical area and scalp Pain currently is 9 out of 10 on a pain scale. Is continuous. Neuro: Level of Consciousness is awake, alert, obeys commands, Oriented to person, place, time, situation. Cardiovascular: Capillary refill < 3 seconds is sluggish in bilateral fingers Patient's skin is warm and dry. Respiratory: Airway is patent Respiratory effort is even, unlabored, Respiratory pattern is regular, symmetrical. GI: No signs and/or symptoms were reported involving the gastrointestinal system. EENT: Oral mucosa is moist. Derm: Skin is intact, is healthy with good turgor, Skin is dry, Skin is pink, warm \T\ dry. normal. Musculoskeletal: Circulation, motion, and sensation intact. Range of motion: intact in all extremities, Swelling absent. Vital Signs: 14:21 BP 110 / 75; Pulse 76; Resp 20; Temp 99.2; Pulse Ox 100% ; Weight 108.86 kg; Height 5 sv ft. 6 in. (167.64 cm); Pain 8/10; 14:21 Body Mass Index 38.74 (108.86 kg, 167.64 cm) sv ED Course: 14:11 Patient arrived in ED. sb2 14:12 Vinod Nolan MD is Private Physician. sb2 14:20 Triage completed. sv 14:21 Arm band placed on Patient placed in waiting room, Patient notified of wait time. sv 15:12 Melvin Brooks PA is PHCP. jr8 15:12 Ronnell Milton MD is Attending Physician. jr8 15:57 Breonna Schwab, CHERELLE is Primary Nurse. ss 16:00 Patient has correct armband on for positive identification. Bed in low position. Call ss light in reach. 17:10 CT Head C Spine In Process Unspecified. EDMS 17:21 Vinod Nolan MD is Referral Physician. jr8 17:33 No provider procedures requiring assistance completed. Patient did not have IV access ss during this emergency room visit. Administered Medications: 16:23 Drug: Tylenol 1000 mg Route: PO; ss 17:33 Follow up: Response: No adverse reaction Outcome: 17:21 Discharge ordered by . josiane 17:33 Discharged to home ambulatory. 17:33 Condition: good 17:33 Discharge instructions given to patient, Instructed on discharge instructions, follow up and referral plans. medication usage, Demonstrated understanding of instructions, follow-up care, medications, Prescriptions given X 2. 17:34 Patient left the ED. Signatures: Dispatcher [employer] EDLydia Rizo RN RN Breonna Schwab RN RN ss Roszak, Josh, DALILA CONNER jr8 Ryann Sullivan sb2
--- NOTE | 2018-08-13 17:22 | EDPHYS ---
Physician Documentation [facility] Name: Anjana Stevenson Age: 43 yrs Sex: Female : 1975 Arrival Date: 08/13/2018 Time: 14:11 Bed 18 Private MD: Vinod Nolan ED Physician Ronnell Milton HPI: 08/13 15:24 This 43 yrs old Black Female presents to ER via Ambulatory with complaints of Fall jr8 Injury - HEAD,BACK, Nausea. 15:24 Onset: The symptoms/episode began/occurred acutely, yesterday. Associated injuries: The jr8 patient sustained injury to the head, neck injury. Severity of symptoms: At their worst the symptoms were moderate, in the emergency department the symptoms are unchanged. The patient has not experienced similar symptoms in the past. The patient has not recently seen a physician. Patient was walking downstairs with boxes. Lost footing and fell hitting back of head. Denies LOC. Came today because she was feeling nauseated and was having blurred vision and headache . 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 - Social history:: Smoking status: Patient/guardian denies using tobacco. - Ebola Screening: : No symptoms or risks identified at this time. ROS: 15:24 Eyes: Negative for injury, pain, redness, and discharge, ENT: Negative for injury, jr8 pain, and discharge, Cardiovascular: Negative for chest pain, palpitations, and edema, Respiratory: Negative for shortness of breath, cough, wheezing, and pleuritic chest pain, Abdomen/GI: Negative for abdominal pain, nausea, vomiting, diarrhea, and constipation, Back: Negative for injury and pain, MS/Extremity: Negative for injury and deformity, Skin: Negative for injury, rash, and discoloration. 15:24 Neck: Positive for pain with movement, pain at rest, tenderness, bony tenderness. 15:24 Neuro: Positive for headache, visual changes, Negative for altered mental status, dizziness, loss of consciousness, numbness, seizure activity, tingling, weakness. Exam: 15:24 Head/Face: Normocephalic, atraumatic. Eyes: Pupils equal round and reactive to light, jr8 extra-ocular motions intact. Lids and lashes normal. Conjunctiva and sclera are non-icteric and not injected. Cornea within normal limits. Periorbital areas with no swelling, redness, or edema. ENT: Nares patent. No nasal discharge, no septal abnormalities noted. Tympanic membranes are normal and external auditory canals are clear. Oropharynx with no redness, swelling, or masses, exudates, or evidence of obstruction, uvula midline. Mucous membranes moist. Cardiovascular: Regular rate and rhythm with a normal S1 and S2. No gallops, murmurs, or rubs. Normal PMI, no JVD. No pulse deficits. Respiratory: Lungs have equal breath sounds bilaterally, clear to auscultation and percussion. No rales, rhonchi or wheezes noted. No increased work of breathing, no retractions or nasal flaring. Abdomen/GI: Soft, non-tender, with normal bowel sounds. No distension or tympany. No guarding or rebound. No evidence of tenderness throughout. Back: No spinal tenderness. No costovertebral tenderness. Full range of motion. Mild pain to muscles near both scapula Skin: Warm, dry with normal turgor. Normal color with no rashes, no lesions, and no evidence of cellulitis. MS/ Extremity: Pulses equal, no cyanosis. Neurovascular intact. Full, normal range of motion. Neuro: Awake and alert, GCS 15, oriented to person, place, time, and situation. Cranial nerves II-XII grossly intact. Motor strength 5/5 in all extremities. Sensory grossly intact. Cerebellar exam normal. Normal gait. 15:24 Neck: External neck: tenderness, that is mild, of the left mid cervical area, right mid cervical area, left trapezius and right trapezius, C-spine: vertebral tenderness, that is mild, appreciated at C3, C4 and C5, Thyroid: appears normal, Trachea: is midline with no obvious abnormalities, ROM/movement: pain, that is mild, with any movement, Lymph nodes: no appreciated lymphadenopathy. Vital Signs: 14:21 BP 110 / 75; Pulse 76; Resp 20; Temp 99.2; Pulse Ox 100% ; Weight 108.86 kg; Height 5 sv ft. 6 in. (167.64 cm); Pain 8/10; 14:21 Body Mass Index 38.74 (108.86 kg, 167.64 cm) sv MDM: 15:12 Patient medically screened. jr8 17:21 Data reviewed: vital signs, nurses notes, radiologic studies, CT scan, and as a result, jr8 I will discharge patient. Data interpreted: Pulse oximetry: on room air is 100 %. Interpretation: normal. Counseling: I had a detailed discussion with the patient and/or guardian regarding: the historical points, exam findings, and any diagnostic results supporting the discharge/admit diagnosis, radiology results, the need for outpatient follow up, a family practitioner, to return to the emergency department if symptoms worsen or persist or if there are any questions or concerns that arise at home. 08/13 15:24 Order name: CT Head C Spine; Complete Time: 17:21 jr8 Administered Medications: 16:23 Drug: Tylenol 1000 mg Route: PO; ss 17:33 Follow up: Response: No adverse reaction ss Disposition: 17:24 Co-signature as Attending Physician, Ronnell Milton MD. ma2 Disposition: 08/13/18 17:21 Discharged to Home. Impression: Postconcussional syndrome. - Condition is Stable. - Discharge Instructions: Post-Concussion Syndrome. - Prescriptions for Zofran 4 mg Oral Tablet - take 1 tablet by ORAL route every 12 hours As needed; 20 tablet. Skelaxin 800 mg Oral Tablet - take 1 tablet by ORAL route every 8 hours As needed; 30 tablet. - Medication Reconciliation Form, Thank You Letter, Antibiotic Education, Prescription Opioid Use form. - Follow up: Vinod Nolan MD; When: 2 - 3 days; Reason: Recheck today's complaints, Continuance of care, Re-evaluation by your physician. - Problem is new. - Symptoms have improved. Signatures: Dispatcher [employer] Lydia Ng RN RN sv Smirch, Shelby, RN RN ss Roszak, Josh, PA PA jr8 Ronnell Milton MD MD ma2 Corrections: (The following items were deleted from the chart) 17:34 17:21 08/13/2018 17:21 Discharged to Home. Impression: Postconcussional syndrome. ss Condition is Stable. Forms are Medication Reconciliation Form, Thank You Letter, Antibiotic Education, Prescription Opioid Use. Follow up: Vinod Nolan; When: 2 - 3 days; Reason: Recheck today's complaints, Continuance of care, Re-evaluation by your physician. Problem is new. Symptoms have improved. jr8
[2018-08-13 18:11] VITALS: BP 110/75; TEMP 99.2; O2SAT 100
== END 2018-08-13 17:34 | disposition home or self-care (01) ==
LOC: ER 14:07
DX: F07.81 Postconcussional syndrome (principal); W10.9XXA Fall (on) (from) unspecified stairs and steps, initial encounter
CPT/HCPCS: 70450; 72125; 99283